=== PATIENT | female | born 1965 | race African-American/Black ===

== ENCOUNTER 2018-02-13 02:27 | Observation (INO) | END 2018-02-15 17:09 | disposition home health service (06) ==

== ENCOUNTER 2018-03-04 18:14 | Inpatient (IN) | END 2018-03-07 15:58 | disposition home health service (06) | DRG 246 ==

== ENCOUNTER 2018-04-10 13:54 | Emergency (ER) | END 2018-04-10 20:38 | disposition short-term general hospital (02) ==

== ENCOUNTER 2018-06-29 09:30 | Emergency (ER) | END 2018-06-29 13:35 | disposition home or self-care (01) ==

== ENCOUNTER 2018-07-10 07:49 | Emergency (ER) | payer OTHER ==
[~2018-07-10] VITALS: Ht 162.6 cm; Wt 81.0 kg
[~2018-07-10 07:49] MED LIST: ARIP10TA12 PO; ASPI-817 PO; ATOR-2 PO; BEN50 PO; CARI350T29 PO; CLOP75TA28 PO; DOCU-144 PO; GABA300C16 PO; HYDR-3980 PO; ISOS30TA67 PO; LANT3I SC; LINA5TAB PO; LOSA50TA7 PO; METF500T24 PO; METO-335 PO; NITR0.4T39 SL; NORT50CA PO; PANT20TA2 PO; PARO30TA68 PO; RANO500T2 PO; SS SC; TEMA30CA PO
[2018-07-10] MEDS ORDERED: morphine 4 MG/ML VIAL IV STA (07:52)
[2018-07-10] MEDS ORDERED: ONDANSETRON 4 MG INJ IV STA (07:52)
[2018-07-10] MEDS ORDERED: SOD CHLORIDE 0.9% 1,000 ML IV STA (07:52)
[2018-07-10 08:09] VITALS: Ht 162.6 cm; Wt 81.0 kg
[2018-07-10] MEDS ORDERED: INSULIN LISPRO 100 UNIT/ML VIAL SC ONE (10:30)
[2018-07-10 11:30] VITALS: BP 116/78; PULSE 78; RESP 18
--- NOTE | 2018-07-10 13:26 | ERD ---
ER Documentation Chief Complaint Chief Complaint pt bib RA 40 with c/o nausea and headache since 2 am, hx DM HPI Patient is a 53-year-old female with high cholesterol, diabetes, and hypertension who presents with headache and high blood sugar. She said that it 2 AM she started with nausea. Her blood sugar was 466 by paramedics. She said that she took her insulin last night. She complains of a headache as well and has a history of aneurysm. Upon review of old medical records this is the patient's fifth visit to the ER since February 2018. She has had similar visits in the past. She does have a primary doctor. ROS All systems reviewed and are negative except as per history of present illness. Medications Home Meds Active Scripts Hydrocodone/Acetaminophen ([place] 10-325 Tablet) 1 Each Tablet, 1 TAB PO Q6H PRN for PAIN, #7 TAB Prov:JENNIFER ATWOOD DO 06/29/18 Losartan Potassium* (Losartan Potassium*) 50 Mg Tablet, 50 MG PO DAILY, #30 TAB 1 Refill Prov:TANK HILL 03/06/18 Atorvastatin* (Atorvastatin*) 80 Mg Tablet, 80 MG PO QHS for 30 Days, #30 TAB 2 Refills Prov:TANK HILL 03/06/18 Clopidogrel Bisulfate (Clopidogrel) 75 Mg Tablet, 75 MG PO DAILY for 30 Days, #30 TAB 9 Refills Prov:TANK HILL 03/06/18 Aspirin* (Aspirin* EC) 81 Mg Tablet.dr, 81 MG PO DAILY for 30 Days, #30 TAB 9 Refills Prov:TANK HILL 03/06/18 Reported Medications Temazepam* (Temazepam*) 30 Mg Capsule, 30 MG PO HS PRN for INSOMNIA, CAP 03/04/18 Nortriptyline Hcl* (Nortriptyline Hcl*) 50 Mg Capsule, 50 MG PO QHS, TAB 03/04/18 Insulin Human Regular (Novolin-R U-100) 100 Unit/Ml Soln, 30 UNITS SC AC MEALS AND BEDTIME, EA 03/04/18 Hydrocodone/Acetaminophen ([place] 10-325 Tablet) 1 Each Tablet, 1 EACH PO QID PRN for PAIN, TAB 03/04/18 Diphenhydramine Hcl* (Benadryl*) 50 Mg Cap, 50 MG PO Q6 PRN for ITCHING, CAP 03/04/18 Linagliptin (TRADJENTA) 5 Mg Tablet, 5 MG PO DAILY, TAB 03/04/18 Pantoprazole* (Protonix*) 20 Mg Tablet.dr, 20 MG PO BID, TAB 03/04/18 Metformin Hcl* (Metformin Hcl*) 500 Mg Tablet, 500 MG PO WITH BREAKFAST DINNE, #60 TAB 03/04/18 Insulin Glargine* (Lantus*) 100 Unit/Ml Soln, 80 UNIT SC BID, #1 VIAL 03/04/18 Isosorbide Mononitrate* (Isosorbide Mononitrate*) 30 Mg Tab.er.24h, 30 MG PO DAILY, TAB 02/12/18 Carisoprodol* (Carisoprodol*) 350 Mg Tablet, 350 MG PO DAILY PRN for MUSCLE SPASMS, TAB 02/12/18 Metoprolol Succinate* (Toprol XL*) 25 Mg Tab.sr.24h, 25 MG PO DAILY, #30 TAB 02/12/18 Paroxetine Hcl* (Paroxetine*) 30 Mg Tablet, 30 MG PO HS, TAB 02/12/18 Gabapentin* (Gabapentin*) 300 Mg Capsule, 300 MG PO QHS, #60 CAP 02/12/18 Ranolazine* (Ranexa*) 500 Mg Tab.sr.12h, 500 MG PO Q12, TAB 02/12/18 Nitroglycerin* (Nitrostat*) 0.4 Mg Tab.subl, 0.4 MG SL Q5MIN PRN for CHEST PAIN, BOTTLE 02/12/18 Aripiprazole* (Abilify*) 10 Mg Tablet, 10 MG PO QHS, #30 TAB 02/12/18 Docusate Sodium* (Colace*) 100 Mg Capsule, 100 MG PO Q24H PRN for CONSTIPATION, #30 CAP 02/12/18 Allergies Allergies: Coded Allergies: ampicillin (Verified Allergy, Unknown, 04/10/18) sulbactam (Verified Allergy, Unknown, 04/10/18) PMhx/Soc History of Surgery: Yes (C-sections, 2 cardiac stents 02/24 ) Anesthesia Reaction: No Hx Neurological Disorder: No Hx Respiratory Disorders: No Hx Cardiac Disorders: Yes Hx Psychiatric Problems: No Hx Miscellaneous Medical Probl: Yes (CAD s/p stent placed 2 weeks ago, DM, diabetic neuropathy, HTN) Hx Alcohol Use: No Hx Substance Use: No Hx Tobacco Use: No Smoking Status: Unknown if ever smoked FmHx Family History: diabetes Physical Exam Vitals Vital Signs Date Temp Pulse Resp B/P (MAP) Pulse Ox O2 O2 Flow FiO2 Time Delivery Rate 07/10/18 98.4 78 18 116/78 100 11:30 (91) 07/10/18 97.3 76 18 125/83 97 08:09 (97) Physical Exam Const: Moderate distress Head: Atraumatic Eyes: Normal Conjunctiva ENT: Normal External Ears, Nose and Mouth. Neck: Full range of motion. No meningismus. Resp: Clear to auscultation bilaterally Cardio: Regular rate and rhythm, no murmurs Abd: Soft, non tender, non distended. Normal bowel sounds Skin: No petechiae or rashes Back: No midline or flank tenderness Ext: No cyanosis, or edema Neur: Awake and alert, cranial nerves II through XII intact, strength is 5 out of 5 in all 4 extremities Psych: Normal Mood and Affect Result Diagram: 07/10/18 0804 07/10/18 0900 Results 24 hrs Laboratory Tests Test 07/10/18 07:52 07/10/18 08:03 07/10/18 08:04 07/10/18 09:00 Blood Gas Blood venous Specimen Source Arterial Blood 07/10/2018 9:22:38 Date Drawn AM Arterial Blood VENOUS LINE Gas Puncture Site Toni Test N/A Venous Blood pH 7.330 Venous Blood pCO2 48.9 mmHG (Temp Corrected) Venous Blood pO2 24.6 mmHG (Temp Corrected) Venous Blood HCO3 25.2 mmol/L Venous Blood 42.3 mmHG Oxygen Saturation Venous Blood Base -1.2 mmol/L Excess Venous Blood 14.0 g/dl Total Hemoglobin Venous Blood 41.9 % Oxyhemoglobin Venous Blood 0.2 % Methemoglobin Carboxyhemoglobin 0.7 % Blood Gas 37.0 C Temperature Blood Gas Actual 20 Respiration Rate Blood Gas ROOM AIR Modality FiO2 21.0 % Blood Gas JUAN RT Notified Whom Blood Gas 07/10/2018 9:28:36 Notified Time AM Bedside Glucose 495 mg/dL White Blood Count 7.5 10^3/ul Red Blood Count 4.32 10^6/ul Hemoglobin 13.3 g/dl Hematocrit 37.8 % Mean Corpuscular 87.5 fl Volume Mean Corpuscular 30.8 pg Hemoglobin Mean Corpuscular 35.2 g/dl Hemoglobin Concen t Red Cell 12.5 % Distribution Width Platelet Count 375 10^3/UL Mean Platelet 10.1 fl Volume Immature 0.300 % Granulocytes % Neutrophils % 65.2 % Lymphocytes % 24.2 % Monocytes % 7.2 % Eosinophils % 2.7 % Basophils % 0.4 % Nucleated Red 0.0 /100WBC Blood Cells % Immature 0.020 10^3/ul Granulocytes # Neutrophils # 4.9 10^3/ul Lymphocytes # 1.8 10^3/ul Monocytes # 0.5 10^3/ul Eosinophils # 0.2 10^3/ul Basophils # 0.0 10^3/ul Nucleated Red 0.0 10^3/ul Blood Cells # Sodium Level 133 mmol/L Potassium Level 4.5 mmol/L Chloride Level 104 mmol/L Carbon Dioxide 25 mmol/L Level Anion Gap 4 Blood Urea 8 mg/dl Nitrogen Creatinine 0.68 mg/dl Est Glomerular > 60 mL/min Filtrat Rate mL/min Glucose Level 456 mg/dl Calcium Level 8.5 mg/dl Phosphorus Level 3.3 mg/dl Magnesium Level 1.8 mg/dl Test 07/10/18 11:25 Bedside Glucose 463 mg/dL Current Medications Medications Dose Sig/Victoria Start Time Status Last (Trade) Ordered Route PRN Stop Time Admin Dose Reason Admin Morphine 4 mg ONCE STAT 07/10/18 DC 07/10/18 Sulfate IV 07:52 07/10/18 08:32 (morphine) 07:56 Ondansetron 4 mg ONCE STAT 07/10/18 DC 07/10/18 HCl (Zofran IV 07:52 07/10/18 08:33 Inj) 07:56 Sodium 1,000 ml @ Q1H STAT 07/10/18 DC 07/10/18 Chloride 1,000 mls/hr IV 07:52 07/10/18 08:33 08:51 Insulin 10 unit ONCE ONCE 07/10/18 DC 07/10/18 Human SC 10:30 07/10/18 10:49 Lispro 10:32 (Humalog) Procedures/MDM CT brain read by radiology as normal. Patient is a 53-year-old female who presents with hyperglycemia and headache. CT scan of the brain shows no sign of intracranial hemorrhage or mass. The patient has hyperglycemia but no signs of diabetic ketoacidosis. She was treate d with normal saline 1 L bolus as well as Zofran and Humalog 10 units subcutaneous. The patient will be discharged home. I do not believe she requires further workup or admission in the hospital at this time. She should follow-up with her primary doctor within 24-48 hours. Departure Diagnosis: Primary Impression: Headache Headache type: unspecified Headache chronicity pattern: acute headache Intractability: not intractable Qualified Codes: R51 - Headache Additional Impression: Hyperglycemia Condition: Fair Patient Instructions: Hyperglycemia (High Blood Sugar), Self-Care for Headaches Referrals: Dr. Park Additional Instructions: Call your primary care doctor TOMORROW for an appointment during the next 1-2 days.See the doctor sooner or return here if your condition worsens before your appointment time. ANUPAMA PISANO MD Jul 10, 2018 13:26
== END 2018-07-10 11:32 | disposition home or self-care (01) ==
LOC: E/R 07:49
DX: R51 Headache (principal); E11.65 Type 2 diabetes mellitus with hyperglycemia; I10 Essential (primary) hypertension; I25.10 Atherosclerotic heart disease of native coronary artery without angina pectoris; Z79.01 Long term (current) use of anticoagulants; Z79.4 Long term (current) use of insulin; Z79.82 Long term (current) use of aspirin; Z98.61 Coronary angioplasty status
CPT/HCPCS: 36415; 70450; 80048; 82803; 82962; 83735; 84100; 85025; 96372; 96374; 96375; J1815; J2270; J2405; J7030; Z7502

== ENCOUNTER 2018-11-27 17:11 | Observation (INO) | payer OTHER ==
[~2018-11-27] VITALS: Ht 165.1 cm; Wt 84.0 kg
[~2018-11-27 17:11] MED LIST changes: +LOSA50TA14 PO; -LOSA50TA7 PO
[2018-11-27] MEDS ORDERED: SOD CHLORIDE 0.9% 1,000 ML IV STA ×2 (17:25→18:47)
[2018-11-27] MEDS ORDERED: CARI350T29 PO (17:37)
[2018-11-27] MEDS ORDERED: HYDR-3980 PO (17:38)
[2018-11-27] MEDS ORDERED: DIPH50CA30 PO (17:38)
--- NOTE | 2018-11-27 17:38 | ERD ---
ER Documentation Chief Complaint Chief Complaint HYPERGLYCEMIA, TOO HIGH TO READ ON MONITOR & DIZZINESS, LEFT TOE NAIL OFF HPI 53-year-old female with a history of insulin-dependent diabetes presenting with hyperglycemia. She has checked her sugar multiple times a day and it has been too high to read. She has been using all of her medications appropriately and has changed her diet. She injected herself with insulin 3 times today without improvement. She is feeling dizzy, generally weak. She also states that she stubbed her left toe and her nail partially came off but she pushed it down. She is complaining of throbbing pain in her left big toe, worse with ambulation, with no alleviating factors. ROS All systems reviewed and are negative except as per history of present illness. Medications Home Meds Active Scripts Mupirocin* (Bactroban*) 2% -22 Gram Oint...g., 1 APPLIC TOP DAILY, #1 TUB Prov:DELORES KIRKLAND 11/29/18 Reported Medications Salmeterol Xinaf-Fluticasone* (Advair*) 100/50 Diskus Inhaler, 1 INH INHALATION BID, #1 INHALER 11/27/18 Atorvastatin* (Atorvastatin*) 80 Mg Tablet, 80 MG PO QHS, #30 TAB 11/27/18 Losartan Potassium* (Losartan Potassium*) 50 Mg Tablet, 50 MG PO DAILY, TAB 11/27/18 Docusate Sodium* (Colace*) 100 Mg Capsule, 100 MG PO DAILY, #30 CAP 11/27/18 Gabapentin* (Gabapentin*) 300 Mg Capsule, 300 MG PO TID, #90 CAP 11/27/18 Metoprolol Succinate* (Toprol XL*) 25 Mg Tab.sr.24h, 25 MG PO DAILY, #30 TAB 11/27/18 Insulin Regular, Human (Humulin R U-500 Kwikpen) 500 Unit/1 Ml Insuln.pen, 25 UNIT SQ TID 11/27/18 Insulin Glargine* (Lantus*) 100 Unit/Ml Soln, 80 UNIT SC BID, #1 VIAL 11/27/18 Paroxetine Hcl* (Paroxetine*) 30 Mg Tablet, 30 MG PO HS, TAB 11/27/18 Clopidogrel Bisulfate* (Clopidogrel Bisulfate*) 75 Mg Tablet, 75 MG PO DAILY, #30 TAB 11/27/18 Isosorbide Mononitrate* (Isosorbide Mononitrate*) 30 Mg Tab.er.24h, 30 MG PO DAILY, TAB 11/27/18 Loratadine* (Loratadine*) 10 Mg Tablet, 10 MG PO DAILY, #30 TAB 11/27/18 Amlodipine Besylate* (Amlodipine Besylate*) 10 Mg Tablet, 10 MG PO DAILY, #30 TAB 11/27/18 Aspirin* (Aspirin* EC) 81 Mg Tablet.dr, 81 MG PO DAILY, TAB 11/27/18 Temazepam* (Temazepam*) 30 Mg Capsule, 30 MG PO HS PRN for INSOMNIA, CAP 11/27/18 Nitroglycerin* (Nitroglycerin* SL) 0.4 Mg Tab.subl, 0.4 MG SL Q5MIN PRN for CHEST PAIN, BOTTLE 11/27/18 Diphenhydramine Hcl (BANOPHEN) 50 Mg Capsule, 50 MG PO NEEDED, CAP 11/27/18 Hydrocodone/Acetaminophen ([place] 10-325 Tablet) 1 Each Tablet, 1 EACH PO Q6H, TAB 11/27/18 Carisoprodol* (Carisoprodol*) 350 Mg Tablet, 350 MG PO DAILY PRN for MUSCLE SPASMS, TAB 11/27/18 Discontinued Reported Medications Temazepam* (Temazepam*) 30 Mg Capsule, 30 MG PO HS PRN for INSOMNIA, CAP 03/04/18 Nortriptyline Hcl* (Nortriptyline Hcl*) 50 Mg Capsule, 50 MG PO QHS, TAB 03/04/18 Insulin Human Regular (Novolin-R U-100) 100 Unit/Ml Soln, 30 UNITS SC AC MEALS AND BEDTIME, EA 03/04/18 Hydrocodone/Acetaminophen ([place] 10-325 Tablet) 1 Each Tablet, 1 EACH PO QID PRN for PAIN, TAB 03/04/18 Diphenhydramine Hcl* (Benadryl*) 50 Mg Cap, 50 MG PO Q6 PRN for ITCHING, CAP 03/04/18 Linagliptin (TRADJENTA) 5 Mg Tablet, 5 MG PO DAILY, TAB 03/04/18 Pantoprazole* (Protonix*) 20 Mg Tablet.dr, 20 MG PO BID, TAB 03/04/18 Metformin Hcl* (Metformin Hcl*) 500 Mg Tablet, 500 MG PO WITH BREAKFAST DINNE, #60 TAB 03/04/18 Insulin Glargine* (Lantus*) 100 Unit/Ml Soln, 80 UNIT SC BID, #1 VIAL 03/04/18 Isosorbide Mononitrate* (Isosorbide Mononitrate*) 30 Mg Tab.er.24h, 30 MG PO DAILY, TAB 02/12/18 Carisoprodol* (Carisoprodol*) 350 Mg Tablet, 350 MG PO DAILY PRN for MUSCLE SPASMS, TAB 02/12/18 Metoprolol Succinate* (Toprol XL*) 25 Mg Tab.sr.24h, 25 MG PO DAILY, #30 TAB 02/12/18 Paroxetine Hcl* (Paroxetine*) 30 Mg Tablet, 30 MG PO HS, TAB 02/12/18 Gabapentin* (Gabapentin*) 300 Mg Capsule, 300 MG PO QHS, #60 CAP 02/12/18 Ranolazine* (Ranexa*) 500 Mg Tab.sr.12h, 500 MG PO Q12, TAB 02/12/18 Nitroglycerin* (Nitrostat*) 0.4 Mg Tab.subl, 0.4 MG SL Q5MIN PRN for CHEST PAIN, BOTTLE 02/12/18 Aripiprazole* (Abilify*) 10 Mg Tablet, 10 MG PO QHS, #30 TAB 02/12/18 Docusate Sodium* (Colace*) 100 Mg Capsule, 100 MG PO Q24H PRN for CONSTIPATION, #30 CAP 02/12/18 Discontinued Scripts Hydrocodone/Acetaminophen ([place] 10-325 Tablet) 1 Each Tablet, 1 TAB PO Q6H PRN for PAIN, #7 TAB Prov:JENNIFER ATWOOD DO 06/29/18 Losartan Potassium* (Losartan Potassium*) 50 Mg Tablet, 50 MG PO DAILY, #30 TAB 1 Refill Prov:TANK HILL 03/06/18 Atorvastatin* (Atorvastatin*) 80 Mg Tablet, 80 MG PO QHS for 30 Days, #30 TAB 2 Refills Prov:TANK HILL 03/06/18 Clopidogrel Bisulfate (Clopidogrel) 75 Mg Tablet, 75 MG PO DAILY for 30 Days, #30 TAB 9 Refills Prov:TANK HILL 03/06/18 Aspirin* (Aspirin* EC) 81 Mg Tablet.dr, 81 MG PO DAILY for 30 Days, #30 TAB 9 Refills Prov:TANK HILL 03/06/18 Allergies Allergies: Coded Allergies: ampicillin (Verified Allergy, Unknown, 11/27/18) sulbactam (Verified Allergy, Unknown, 11/27/18) PMhx/Soc History of Surgery: Yes (C-sections, 2 cardiac stents 02/24 ) Anesthesia Reaction: No Hx Neurological Disorder: No Hx Respiratory Disorders: No Hx Cardiac Disorders: Yes Hx Psychiatric Problems: No Hx Miscellaneous Medical Probl: Yes (CAD s/p stent placed 2 weeks ago, DM, diab etic neuropathy, HTN) Hx Alcohol Use: No Hx Substance Use: No Hx Tobacco Use: No Smoking Status: Never smoker FmHx Family History: diabetes Physical Exam Vitals Vital Signs Date Temp Pulse Resp B/P (MAP) Pulse Ox O2 O2 Flow FiO2 Time Delivery Rate 11/27/18 79 12 158/76 96 Room Air 18:19 (103) 11/27/18 82 15 152/93 98 Room Air 17:28 (112) 11/27/18 98.7 87 18 152/99 97 17:19 (116) Physical Exam Const: No acute distress Head: Atraumatic Eyes: Normal Conjunctiva ENT: Dry mucous membranes. Normal External Ears, Nose and Mouth. Neck: Full range of motion. No meningismus. Resp: Clear to auscultation bilaterally Cardio: Regular rate and rhythm, no murmurs Abd: Soft, non tender, non distended. Normal bowel sounds Skin: No petechiae or rashes Back: No midline or flank tenderness Ext: No cyanosis, or edema. Left big toe with nail loose but in place .No bruising or bleeding. No evidence of nailbed laceration. Matrix intact. Neur: Awake and alert Psych: Normal Mood and Affect Result Diagram: 11/28/18 0455 11/29/18 0434 Results 24 hrs Laboratory Tests Test 11/27/18 17:34 11/27/18 19:12 11/27/18 20:17 11/27/18 20:21 White Blood Count 8.7 10^3/ul Red Blood Count 4.99 10^6/ul Hemoglobin 14.8 g/dl Hematocrit 42.5 % Mean Corpuscular 85.2 fl Volume Mean Corpuscular 29.7 pg Hemoglobin Mean Corpuscular 34.8 g/dl Hemoglobin Concen t Red Cell 11.8 % Distribution Width Platelet Count 342 10^3/UL Mean Platelet 10.0 fl Volume Immature 0.200 % Granulocytes % Neutrophils % 63.4 % Lymphocytes % 28.3 % Monocytes % 5.4 % Eosinophils % 2.2 % Basophils % 0.5 % Nucleated Red 0.0 /100WBC Blood Cells % Immature 0.020 10^3/ul Granulocytes # Neutrophils # 5.5 10^3/ul Lymphocytes # 2.5 10^3/ul Monocytes # 0.5 10^3/ul Eosinophils # 0.2 10^3/ul Basophils # 0.0 10^3/ul Nucleated Red 0.0 10^3/ul Blood Cells # Sodium Level 132 mmol/L Potassium Level 4.4 mmol/L Chloride Level 97 mmol/L Carbon Dioxide 24 mmol/L Level Anion Gap 11 Blood Urea 10 mg/dl Nitrogen Creatinine 0.89 mg/dl Est Glomerular > 60 mL/min Filtrat Rate mL/min Glucose Level 573 mg/dl Bedside Glucose 538 mg/dL 409 mg/dL 343 mg/dL Calcium Level 9.8 mg/dl Urine Color STRAW Urine Clarity CLEAR Urine pH 8.0 Urine Specific 1.027 [place] Urine Ketones TRACE mg/dL Urine Nitrite NEGATIVE mg/dL Urine Bilirubin NEGATIVE mg/dL Urine NEGATIVE mg/dL Urobilinogen Urine Leukocyte NEGATIVE Gene/ul Esterase Urine Microscopic 4 /HPF RBC Urine Microscopic 0 /HPF WBC Urine Hemoglobin NEGATIVE mg/dL Urine Glucose 3+ mg/dL Urine Total 1+ mg/dl Protein Current Medications Medications Dose Sig/Victoria Start Time Status Last (Trade) Ordered Route PRN Stop Time Admin Dose Reason Admin Sodium 1,000 ml @ Q1H STAT 11/27/18 DC 11/27/18 Chloride 1,000 mls/hr IV 17:25 17:35 11/27/18 18:24 Sodium 1,000 ml @ Q1H STAT 11/27/18 DC 11/27/18 Chloride 1,000 mls/hr IV 18:47 19:05 11/27/18 19:46 Insulin 10 unit ONCE STAT 11/27/18 DC 11/27/18 Human SC 18:47 19:15 Lispro 11/27/18 18:48 (Humalog) Procedures/MDM EMERGENT LABS AND DIAGNOSTIC STUDIES: Lab Results above were reviewed and interpreted by me. CBC: no anemia or evidence of infection BMP: Hyperglycemic without evidence of diabetic ketoacidosis. no e/o clinically significant electrolyte abnormality severe acidosis, alkalosis, renal failure UA: Pending Initial Nursing notes reviewed. Previous Medical Records requested via the Electronic Health Record. EMERGENCY DEPARTMENT COURSE / MEDICAL DECISION MAKING: Patient is presenting with hyperglycemia without evidence of DKA and without a ny neurologic deficits. She was treated with 2 L of IV fluids as well as insulin subcutaneously. No evidence of acute infection. Her blood sugar remains in the 400s. At this time, I feel the patient requires admission for observation and control of her blood sugar prior to discharge. Departure Diagnosis: Primary Impression: Hyperglycemia BRISEIDA PHILLIPS MD November 27, 2018 17:38
[2018-11-27] MEDS ORDERED: ASPI-817 PO (17:39)
[2018-11-27] MEDS ORDERED: NITR0.4T32 SL (17:39)
[2018-11-27] MEDS ORDERED: TEMA30CA PO (17:39)
[2018-11-27] MEDS ORDERED: LORA10TA3 PO (17:40)
[2018-11-27] MEDS ORDERED: ISOS30TA67 PO (17:40)
[2018-11-27] MEDS ORDERED: AMLO-147 PO (17:40)
[2018-11-27] MEDS ORDERED: PARO30TA68 PO (17:41)
[2018-11-27] MEDS ORDERED: LANT3I SC (17:41)
[2018-11-27] MEDS ORDERED: CLOP75TA19 PO (17:41)
[2018-11-27] MEDS ORDERED: INSU500I SQ (17:42)
[2018-11-27] MEDS ORDERED: METO-335 PO (17:42)
[2018-11-27] MEDS ORDERED: GABA300C16 PO (17:43)
[2018-11-27] MEDS ORDERED: DOCU-144 PO (17:43)
[2018-11-27] MEDS ORDERED: LOSA50TA14 PO (17:43)
[2018-11-27] MEDS ORDERED: ATOR-2 PO (17:44)
[2018-11-27] MEDS ORDERED: ADV10050 INHALATION (17:45)
[2018-11-27] MEDS ORDERED: INSULIN LISPRO 100 UNIT/ML VIAL SC STA (18:47)
[2018-11-27] MEDS ORDERED: ACETAMINOPHEN 325 MG TAB PO PRN (20:30)
[2018-11-27] MEDS ORDERED: ONDANSETRON 4 MG INJ IV PRN (20:30)
--- NOTE | 2018-11-27 23:59 | HP ---
Date/Time of Note Date/Time of Note DATE: 11/27/18 TIME: 23:59 Assessment/Plan VTE Prophylaxis Pharmacological prophylaxis: other Lines/Catheters IV Catheter Type (from Nrsg): Saline Lock Assessment/Plan Assessment/Plan 1. Diabetes, insulin-dependent: With hyperglycemia, no DKA -Patient on very high-dose Lantus and short-acting insulin -She reports being compliant with her medications -She was given 10 units of lispro and IV fluid with improvement of her blood glucose from around 570 to 270 -Continue insulin and IV fluid -Check A1c -Endocrine consult 2. History of hypertension: Continue med 3. History of MD, no history of stent: Continue home meds including antiplatelet and antilipid 4. Hypertension: BP was in acceptable range. Continue meds, adjust as needed 5. History of stroke, possible history of brain aneurysm -Continue statin and antiplatelet 6. Mood disorder: Continue paroxetine Result Diagram: 11/27/18 1734 11/27/18 1734 Results 24hrs Laboratory Tests Test 11/27/18 17:34 11/27/18 19:12 11/27/18 20:17 11/27/18 20:21 White Blood Count 8.7 Red Blood Count 4.99 Hemoglobin 14.8 Hematocrit 42.5 Mean Corpuscular 85.2 Volume Mean Corpuscular 29.7 Hemoglobin Mean Corpuscular 34.8 Hemoglobin Concent Red Cell 11.8 Distribution Width Platelet Count 342 Mean Platelet Volume 10.0 Immature 0.200 Granulocytes % Neutrophils % 63.4 Lymphocytes % 28.3 Monocytes % 5.4 Eosinophils % 2.2 Basophils % 0.5 Nucleated Red Blood 0.0 Cells % Immature 0.020 Granulocytes # Neutrophils # 5.5 Lymphocytes # 2.5 Monocytes # 0.5 Eosinophils # 0.2 Basophils # 0.0 Nucleated Red Blood 0.0 Cells # Sodium Level 132 L Potassium Level 4.4 Chloride Level 97 Carbon Dioxide Level 24 Anion Gap 11 Blood Urea Nitrogen 10 Creatinine 0.89 Est Glomerular > 60 Filtrat Rate mL/min Glucose Level 573 *H Bedside Glucose 538 *H 409 *H 343 H Calcium Level 9.8 Urine Color STRAW Urine Clarity CLEAR Urine pH 8.0 Urine Specific 1.027 [place] Urine Ketones TRACE A Urine Nitrite NEGATIVE Urine Bilirubin NEGATIVE Urine Urobilinogen NEGATIVE Urine Leukocyte NEGATIVE Esterase Urine Microscopic 4 RBC Urine Microscopic 0 WBC Urine Hemoglobin NEGATIVE Urine Glucose 3+ H Urine Total Protein 1+ H HPI/ROS Admit Date/Time Admit Date/Time Hx of Present Illness This is a 53-year-old female with a history of MD, CVA with possible brain aneurysm, diabetes mellitus, diabetic neuropathy, mood disorder, hypertension who presents the ER complaining of elevated blood glucose. She said her blood glucose has been persistently high even though she states she has been compliant with her medications. She complains of dizziness, nausea/vomiting and generalized weakness. When she presented to ER, she was found to have blood glucose of around 570, no DKA. Patient was given 10 units of lispro and IV fluid. PMH/Family/Social Past Medical History Past Medical History Medical History: other (See HPI) Past Surgical History Past Surgical Hx: other (See HPI) Family History Significant Family History: no pertinent family hx Social History Alcohol Use: none Smoking Status: Never smoker Drug Use: none Exam Constitutional: alert, oriented, well developed Head: normocephalic, atraumatic Eyes: EOMI, PERRL Respiratory: clear to auscultation, normal air movement Cardiovascular: regular rate and rhythm, nl pulses Gastrointestinal: soft, non-tender Extremities: normal pulses Medications Current Medications Ondansetron HCl (Zofran Inj) 4 mg BRIDGE ORDER PRN IV NAUSEA/VOMITING; Start 11/27/18 at 20:30; Stop 11/28/18 at 20:29 Acetaminophen (Tylenol Tab) 650 mg ER BRIDGE PRN PO .MILD PAIN 1-3 OR TEMP; Start 11/27/18 at 20:30; Stop 11/28/18 at 20:29 Coded Allergies: ampicillin (Verified Allergy, Unknown, 11/27/18) sulbactam (Verified Allergy, Unknown, 11/27/18) Past Surgical History Past Surgical Hx: other Family History Significant Family History: no pertinent family hx Social History Smoking Status: Never smoker Exam/Review of Systems Vital Signs Vitals Vital Signs Date Temp Pulse Resp B/P (MAP) Pulse Ox O2 O2 Flow FiO2 Time Delivery Rate 11/27/18 98.4 76 16 139/103 98 Room Air 23:24 (115) FRANKIE WYNN MD November 27, 2018 23:59
[2018-11-28] MEDS ORDERED: ONDANSETRON 4 MG INJ IV PRN (00:30)
[2018-11-28] MEDS ORDERED: ALBUTEROL/IPRATROPIUM (NEB) 3 ML AMP HHN PRN (00:30)
[2018-11-28] MEDS ORDERED: GLUCOSE GEL 15 GRAM TUBE PO PRN ×2 (00:30)
[2018-11-28] MEDS ORDERED: GLUCAGON 1 MG INJ IM PRN (00:30)
[2018-11-28] MEDS ORDERED: DEXTROSE 50% 50 ML SYRINGE IV PRN ×2 (00:30)
[2018-11-28] MEDS ORDERED: GLUCOSE GEL 15 GRAM TUBE BUCCAL PRN (00:30)
[2018-11-28] MEDS ORDERED: NITROGLYCERIN (SL) 0.4 MG TAB SL PRN (00:30)
[2018-11-28] MEDS ORDERED: NACL 0.9% 3 ML SYG IV SCH (00:30)
[2018-11-28] MEDS ORDERED: ACETAMINOPHEN 325 MG TAB PO PRN (00:30)
[2018-11-28] MEDS ORDERED: CARISOPRODOL 350 MG TAB PO PRN (00:30)
[2018-11-28] MEDS ORDERED: ACCU-CHEK XX SCH (02:00)
[2018-11-28] MEDS: HYDROCODONE/APAP (10/325) TAB PO PRN ×3 (02:23→17:08)
[2018-11-28] MEDS: SOD CHLORIDE 0.9% 1,000 ML IV SCH ×3 (02:24→17:03)
[2018-11-28 02:35] VITALS: BP 163/93; PULSE 82; RESP 18
[2018-11-28 02:49] VITALS: Ht 165.1 cm; Wt 84.0 kg
[2018-11-28] MEDS: INSULIN GLARGINE [LANTus] (100 UNITS/ML) SYG SC SCH ×2 (03:48→20:49)
[2018-11-28] MEDS: INSULIN ASPART [NOVOLOG] 3 ML PEN SC SCH ×7 (03:51→20:57)
[2018-11-28] MEDS ORDERED: INSULIN ASPART [NOVOLOG] 3 ML PEN SC ONE (06:00)
[2018-11-28] MEDS ORDERED: ACCU-CHEK XX ONE (08:00)
[2018-11-28 08:08] VITALS: BP 139/68; PULSE 87; RESP 18
[2018-11-28] MEDS: LORATADINE 10 MG TAB PO SCH (08:42)
[2018-11-28] MEDS: CLOPIDOGREL 75 MG TAB PO SCH (08:43)
[2018-11-28] MEDS: LOSARTAN 50 MG TAB PO SCH (08:43)
[2018-11-28] MEDS: GABAPENTIN 300 MG CAP PO SCH ×3 (08:43→20:46)
[2018-11-28] MEDS: ASPIRIN (EC) 81 MG TAB PO SCH (08:44)
[2018-11-28] MEDS: METOPROLOL (XL) 25 MG TAB PO SCH (08:44)
[2018-11-28] MEDS: ISOSORBIDE MONONITRATE(SR)30 MG TAB PO SCH (08:45)
[2018-11-28] MEDS: DOCUSATE SODIUM 100 MG CAP PO SCH (08:52)
[2018-11-28] MEDS: AMLODIPINE 10 MG TAB PO SCH (08:52)
[2018-11-28] MEDS ORDERED: POTASSIUM CHLORIDE (SR) 20 MEQ TAB PO STA (09:51)
[2018-11-28] MEDS ORDERED: DIPHENHYDRAMINE 50 MG CAP PO ONE (11:30)
[2018-11-28] MEDS ORDERED: DIPHENHYDRAMINE 50 MG INJ IV ONE (12:30)
[2018-11-28] MEDS ORDERED: LIDOCAINE 1% (MDV) 20 ML INJ INJ PRN (13:30)
--- NOTE | 2018-11-28 14:48 | PN ---
Date/Time of Note Date/Time of Note DATE: 11/28/18 TIME: 14:45 Assessment/Plan VTE Prophylaxis Risk score (from Ns)>0 risk: 3 SCD applied (from Ns): Yes Pharmacological prophylaxis: NA/contraindicated Pharm contraindication: low risk/ambulating Lines/Catheters IV Catheter Type ([facility] Peripheral IV Assessment/Plan Hospital Course 1. Diabetes, insulin-dependent: With hyperglycemia, no DKA -Patient on very high-dose Lantus and short-acting insulin -She reports being compliant with her medications -She was given 10 units of lispro and IV fluid with improvement of her blood g lucose -Continue insulin and IV fluid -A1c is undetectable -Patient follows up with public health advisor as an outpatient 2. Diabetic toenail separation -Podiatry consultation obtained 2. History of hypertension: Continue med 3. History of AL, no history of stent: Continue home meds including anti platelet and antilipid 4. Hypertension: BP was in acceptable range. Continue meds, adjust as needed 5. History of stroke, possible history of brain aneurysm -Continue statin and antiplatelet 6. Mood disorder: Continue paroxetine 7. Pruritus -Benadryl Prophylaxis: Ambulation Result Diagram: 11/28/18 0455 11/28/18 0456 Results 24hrs Laboratory Tests Test 11/27/18 17:34 11/27/18 19:12 11/27/18 20:17 11/27/18 20:21 White Blood Count 8.7 Red Blood Count 4.99 Hemoglobin 14.8 Hematocrit 42.5 Mean Corpuscular 85.2 Volume Mean Corpuscular 29.7 Hemoglobin Mean Corpuscular 34.8 Hemoglobin Concent Red Cell 11.8 Distribution Width Platelet Count 342 Mean Platelet Volume 10.0 Immature 0.200 Granulocytes % Neutrophils % 63.4 Lymphocytes % 28.3 Monocytes % 5.4 Eosinophils % 2.2 Basophils % 0.5 Nucleated Red Blood 0.0 Cells % Immature 0.020 Granulocytes # Neutrophils # 5.5 Lymphocytes # 2.5 Monocytes # 0.5 Eosinophils # 0.2 Basophils # 0.0 Nucleated Red Blood 0.0 Cells # Sodium Level 132 L Potassium Level 4.4 Chloride Level 97 Carbon Dioxide Level 24 Anion Gap 11 Blood Urea Nitrogen 10 Creatinine 0.89 Est Glomerular > 60 Filtrat Rate mL/min Glucose Level 573 *H Bedside Glucose 538 *H 409 *H 343 H Calcium Level 9.8 Urine Color STRAW Urine Clarity CLEAR Urine pH 8.0 Urine Specific 1.027 [place] Urine Ketones TRACE A Urine Nitrite NEGATIVE Urine Bilirubin NEGATIVE Urine Urobilinogen NEGATIVE Urine Leukocyte NEGATIVE Esterase Urine Microscopic 4 RBC Urine Microscopic 0 WBC Urine Hemoglobin NEGATIVE Urine Glucose 3+ H Urine Total Protein 1+ H Test 11/28/18 00:15 11/28/18 03:45 11/28/18 04:55 11/28/18 04:56 Bedside Glucose 274 H 335 H White Blood Count 7.8 Red Blood Count 4.08 L Hemoglobin 12.3 Hematocrit 35.6 L Mean Corpuscular 87.3 Volume Mean Corpuscular 30.1 Hemoglobin Mean Corpuscular 34.6 Hemoglobin Concent Red Cell 11.9 Distribution Width Platelet Count 277 Mean Platelet Volume 9.9 Immature 0.100 Granulocytes % Neutrophils % 53.0 Lymphocytes % 37.4 Monocytes % 5.9 Eosinophils % 3.1 Basophils % 0.5 Nucleated Red Blood 0.0 Cells % Immature 0.010 Granulocytes # Neutrophils # 4.2 Lymphocytes # 2.9 Monocytes # 0.5 Eosinophils # 0.2 Basophils # 0.0 Nucleated Red Blood 0.0 Cells # Hemoglobin A1c Sodium Level 136 Potassium Level 3.4 L Chloride Level 107 # Carbon Dioxide Level 24 Anion Gap 5 Blood Urea Nitrogen 7 Creatinine 0.63 Est Glomerular > 60 Filtrat Rate mL/min Glucose Level 270 #H Calcium Level 8.3 L Phosphorus Level 3.1 Magnesium Level 1.7 Total Bilirubin 0.5 Direct Bilirubin 0.00 Indirect Bilirubin 0.5 Aspartate Amino 19 Transf (AST/SGOT) Alanine 17 Aminotransferase (AL T/SGPT) Alkaline Phosphatase 52 Total Protein 5.3 L Albumin 3.0 L Globulin 2.30 Albumin/Globulin 1.30 Ratio Triglycerides Level 103 Cholesterol Level 168 LDL Cholesterol, 95 Calculated HDL Cholesterol 52 Cholesterol/HDL 3.2 Ratio Test 11/28/18 06:16 11/28/18 08:40 11/28/18 10:55 11/28/18 12:56 Bedside Glucose 205 134 167 185 Subjective 24 Hr Interval Summary Skin: pruritis Exam/Review of Systems Exam Vitals Vital Signs Date Temp Pulse Resp B/P (MAP) Pulse Ox O2 O2 Flow FiO2 Time Delivery Rate 11/28/18 97.8 87 18 139/68 97 Room Air 08:08 (91) Intake and Output 11/27/18 11/27/18 11/28/18 1515:00 23:00 07:00 IntakeIntake Total 250 ml BalanceBalance 250 ml Constitutional: alert, oriented Respiratory: clear to auscultation Cardiovascular: regular rate and rhythm Gastrointestinal: soft; No distended Musculoskeletal: No nl extremities to inspection Results Results 24hrs Laboratory Tests Test 11/27/18 17:34 11/27/18 19:12 11/27/18 20:17 11/27/18 20:21 White Blood Count 8.7 Red Blood Count 4.99 Hemoglobin 14.8 Hematocrit 42.5 Mean Corpuscular 85.2 Volume Mean Corpuscular 29.7 Hemoglobin Mean Corpuscular 34.8 Hemoglobin Concent Red Cell 11.8 Distribution Width Platelet Count 342 Mean Platelet Volume 10.0 Immature 0.200 Granulocytes % Neutrophils % 63.4 Lymphocytes % 28.3 Monocytes % 5.4 Eosinophils % 2.2 Basophils % 0.5 Nucleated Red Blood 0.0 Cells % Immature 0.020 Granulocytes # Neutrophils # 5.5 Lymphocytes # 2.5 Monocytes # 0.5 Eosinophils # 0.2 Basophils # 0.0 Nucleated Red Blood 0.0 Cells # Sodium Level 132 L Potassium Level 4.4 Chloride Level 97 Carbon Dioxide Level 24 Anion Gap 11 Blood Urea Nitrogen 10 Creatinine 0.89 Est Glomerular > 60 Filtrat Rate mL/min Glucose Level 573 *H Bedside Glucose 538 *H 409 *H 343 H Calcium Level 9.8 Urine Color STRAW Urine Clarity CLEAR Urine pH 8.0 Urine Specific 1.027 [place] Urine Ketones TRACE A Urine Nitrite NEGATIVE Urine Bilirubin NEGATIVE Urine Urobilinogen NEGATIVE Urine Leukocyte NEGATIVE Esterase Urine Microscopic 4 RBC Urine Microscopic 0 WBC Urine Hemoglobin NEGATIVE Urine Glucose 3+ H Urine Total Protein 1+ H Test 11/28/18 00:15 11/28/18 03:45 11/28/18 04:55 11/28/18 04:56 Bedside Glucose 274 H 335 H White Blood Count 7.8 Red Blood Count 4.08 L Hemoglobin 12.3 Hematocrit 35.6 L Mean Corpuscular 87.3 Volume Mean Corpuscular 30.1 Hemoglobin Mean Corpuscular 34.6 Hemoglobin Concent Red Cell 11.9 Distribution Width Platelet Count 277 Mean Platelet Volume 9.9 Immature 0.100 Granulocytes % Neutrophils % 53.0 Lymphocytes % 37.4 Monocytes % 5.9 Eosinophils % 3.1 Basophils % 0.5 Nucleated Red Blood 0.0 Cells % Immature 0.010 Granulocytes # Neutrophils # 4.2 Lymphocytes # 2.9 Monocytes # 0.5 Eosinophils # 0.2 Basophils # 0.0 Nucleated Red Blood 0.0 Cells # Hemoglobin A1c Sodium Level 136 Potassium Level 3.4 L Chloride Level 107 # Carbon Dioxide Level 24 Anion Gap 5 Blood Urea Nitrogen 7 Creatinine 0.63 Est Glomerular > 60 Filtrat Rate mL/min Glucose Level 270 #H Calcium Level 8.3 L Phosphorus Level 3.1 Magnesium Level 1.7 Total Bilirubin 0.5 Direct Bilirubin 0.00 Indirect Bilirubin 0.5 Aspartate Amino 19 Transf (AST/SGOT) Alanine 17 Aminotransferase (AL T/SGPT) Alkaline Phosphatase 52 Total Protein 5.3 L Albumin 3.0 L Globulin 2.30 Albumin/Globulin 1.30 Ratio Triglycerides Level 103 Cholesterol Level 168 LDL Cholesterol, 95 Calculated HDL Cholesterol 52 Cholesterol/HDL 3.2 Ratio Test 11/28/18 06:16 11/28/18 08:40 11/28/18 10:55 11/28/18 12:56 Bedside Glucose 205 134 167 185 Medications Medication Current Medications Sodium Chloride 1,000 ml @ 100 mls/hr Q10H IV Last administered on 11/28/18at 02:24; Admin Dose 100 MLS/HR; Start 11/28/18 at 00:01 IV Flush (NS 3 ml) 3 ml PER PROTOCOL IV ; Start 11/28/18 at 00:30 Ondansetron HCl (Zofran Inj) 4 mg Q6H PRN IV NAUSEA/VOMITING; Start 11/28/18 at 00:30 Acetaminophen (Tylenol Tab) 650 mg Q6H PRN PO .PAIN 1-3 OR TEMP; Start 11/28/18 at 00:30 Albuterol/ Ipratropium (Duoneb) 3 ml Q2H RESP THERAPY PRN HHN SHORTNESS OF BREATH; Start 11/28/18 at 00:30 Diagnostic Test (Pha) (Accu-Chek) 1 ea 02 XX ; Start 11/28/18 at 02:00 Insulin Glargine (Lantus) 23 units DAILY@2000 SC Last administered on 11/28/18at 03:48; Admin Dose 23 UNITS; Start 11/28/18 at 00:30 Amlodipine Besylate (Norvasc) 10 mg DAILY PO Last administered on 11/28/18 08:52; Admin Dose 10 MG; Start 11/28/18 at 09:00 Aspirin (Halfprin) 81 mg DAILY PO Last administered on 11/28/18 08:44; Admin Dose 81 MG; Start 11/28/18 at 09:00 Atorvastatin Calcium (Lipitor) 80 mg QHS PO ; Start 11/28/18 at 21:00 Carisoprodol (Soma) 350 mg DAILY PRN PO MUSCLE SPASMS; Start 11/28/18 at 00:30 Clopidogrel Bisulfate (plaVIX) 75 mg DAILY PO Last administered on 11/28/18 08:43; Admin Dose 75 MG; Start 11/28/18 at 09:00 Docusate Sodium (Colace) 100 mg DAILY PO Last administered on 11/28/18 08:52; Admin Dose 100 MG; Start 11/28/18 at 09:00 Gabapentin (Neurontin) 300 mg TID PO Last administered on 11/28/18 13:33; Admin Dose 300 MG; Start 11/28/18 at 09:00 Acetaminophen/ Hydrocodone Bitart ([place] (10/325)) 1 tab Q6H PRN PO pain > 6 Last administered on 11/28/18 08:49; Admin Dose 1 TAB; Start 11/28/18 at 00:30 Isosorbide Mononitrate (Imdur) 30 mg DAILY PO Last administered on 11/28/18 08:45; Admin Dose 30 MG; Start 11/28/18 at 09:00 Loratadine (Claritin) 10 mg DAILY PO ; Start 11/28/18 at 09:00 Losartan Potassium (Cozaar) 50 mg DAILY PO Last administered on 11/28/18 08:43; Admin Dose 50 MG; Start 11/28/18 at 09:00 Metoprolol Succinate (Toprol Xl) 25 mg DAILY PO Last administered on 11/28/18 08:44; Admin Dose 25 MG; Start 11/28/18 at 09:00 Nitroglycerin (Nitroglycerin (Sl Tab) 0.4 Mg) 1 tab Q5M PRN SL CHEST PAIN; Start 11/28/18 at 00:30 Paroxetine HCl (Paxil) 30 mg HS PO ; Start 11/28/18 at 21:00 Miscellaneous Information 1 ea NOTE XX ; Start 11/28/18 at 00:30 Glucose (Glutose) 15 gm Q15M PRN PO DECREASED GLUCOSE; Start 11/28/18 at 00:30 Glucose (Glutose) 22.5 gm Q15M PRN PO DECREASED GLUCOSE; Start 11/28/18 at 00:30 Dextrose (D50w Syringe) 25 ml Q15M PRN IV DECREASED GLUCOSE; Start 11/28/18 at 00:30 Dextrose (D50w Syringe) 50 ml Q15M PRN IV DECREASED GLUCOSE; Start 11/28/18 at 00:30 Glucagon (Glucagen) 1 mg Q15M PRN IM DECREASED GLUCOSE; Start 11/28/18 at 00:30 Glucose (Glutose) 15 gm Q15M PRN BUCCAL DECREASED GLUCOSE; Start 11/28/18 at 00:30 Insulin Aspart (Novolog Insulin Pen) 8 unit WITH MEALS SC Last administered on 11/28/18at 13:01; Admin Dose 8 UNIT; Start 11/28/18 at 07:50 Lidocaine (Xylocaine 1% (Mdv) 20 ml) 20 ml ONCE PRN INJ Left third toenail procedure; Start 11/28/18 at 13:30 DELORES KIRKLAND November 28, 2018 14:48
[2018-11-28 15:35] VITALS: BP 107/62; PULSE 75; RESP 18
--- NOTE | 2018-11-28 19:22 | CONS ---
Assessment/Plan Assessment/Plan Assessment/Plan (Daily) Left 3rd digit toe nail trauma DM2 with peripheral neuropathy Hx of [place] Hx of CVA HTN Plan Consent was obtained and performed a left 3rd digit total toe nail avulsion. The left 3rd digit was prepped in sterile fashion and local anesthetic block provided to the digit. Copious betadine and saline lavage. Wound culture was obtained for left 3rd digit. betadine and dry sterile dressings were applied to the wound bed. Recommend daily application of bactroban and dry sterile dressings to the left 3rd toe nail. Patient may weight bear as tolerated. Recommend tight glycemic control and educated on signs/symptoms of infection to the toe nail trauma site. Recommend patient to follow up in outpatient wound clinic for further monitoring. Consultation Date/Type/Reason Admit Date/Time Date/Time of Note DATE: 11/28/18 TIME: 19:20 Hx of Present Illness 53 y/o F diabetic patient presents to the floor with loose left 3rd digit toe nail. Patient relates her toe nail got caught on the bed sheet yesterday and pulled the toe nail. Patient attempted to place a band aid to keep the nail in place. She presented to the ER for further management and also concerns for her diabetes being out of control. Patient denies constitutional symptoms. Patient relates sharp 6/10 pain to the left 3rd digit toe nail site worsened with direct pressure and relieved when not touching the toe nail. ROS Negative except for HPI Past Medical History [place], CVA with possible brain aneurysm, diabetes mellitus, diabetic neuropathy, mood disorder, hypertension Home Meds Reported Medications Salmeterol Xinaf-Fluticasone* (Advair*) 100/50 Diskus Inhaler, 1 INH INHALATION BID, #1 INHALER 11/27/18 Atorvastatin* (Atorvastatin*) 80 Mg Tablet, 80 MG PO QHS, #30 TAB 11/27/18 Losartan Potassium* (Losartan Potassium*) 50 Mg Tablet, 50 MG PO DAILY, TAB 11/27/18 Docusate Sodium* (Colace*) 100 Mg Capsule, 100 MG PO DAILY, #30 CAP 11/27/18 Gabapentin* (Gabapentin*) 300 Mg Capsule, 300 MG PO TID, #90 CAP 11/27/18 Metoprolol Succinate* (Toprol XL*) 25 Mg Tab.sr.24h, 25 MG PO DAILY, #30 TAB 11/27/18 Insulin Regular, Human (Humulin R U-500 Kwikpen) 500 Unit/1 Ml Insuln.pen, 25 UNIT SQ TID 11/27/18 Insulin Glargine* (Lantus*) 100 Unit/Ml Soln, 80 UNIT SC BID, #1 VIAL 11/27/18 Paroxetine Hcl* (Paroxetine*) 30 Mg Tablet, 30 MG PO HS, TAB 11/27/18 Clopidogrel Bisulfate* (Clopidogrel Bisulfate*) 75 Mg Tablet, 75 MG PO DAILY, #30 TAB 11/27/18 Isosorbide Mononitrate* (Isosorbide Mononitrate*) 30 Mg Tab.er.24h, 30 MG PO DAILY, TAB 11/27/18 Loratadine* (Loratadine*) 10 Mg Tablet, 10 MG PO DAILY, #30 TAB 11/27/18 Amlodipine Besylate* (Amlodipine Besylate*) 10 Mg Tablet, 10 MG PO DAILY, #30 TA B 11/27/18 Aspirin* (Aspirin* EC) 81 Mg Tablet.dr, 81 MG PO DAILY, TAB 11/27/18 Temazepam* (Temazepam*) 30 Mg Capsule, 30 MG PO HS PRN for INSOMNIA, CAP 11/27/18 Nitroglycerin* (Nitroglycerin* SL) 0.4 Mg Tab.subl, 0.4 MG SL Q5MIN PRN for CHEST PAIN, BOTTLE 11/27/18 Diphenhydramine Hcl (BANOPHEN) 50 Mg Capsule, 50 MG PO NEEDED, CAP 11/27/18 Hydrocodone/Acetaminophen ([place] 10-325 Tablet) 1 Each Tablet, 1 EACH PO Q6H, TAB 11/27/18 Carisoprodol* (Carisoprodol*) 350 Mg Tablet, 350 MG PO DAILY PRN for MUSCLE SPASMS, TAB 11/27/18 Discontinued Reported Medications Temazepam* (Temazepam*) 30 Mg Capsule, 30 MG PO HS PRN for INSOMNIA, CAP 03/04/18 Nortriptyline Hcl* (Nortriptyline Hcl*) 50 Mg Capsule, 50 MG PO QHS, TAB 03/04/18 Insulin Human Regular (Novolin-R U-100) 100 Unit/Ml Soln, 30 UNITS SC AC MEALS A ND BEDTIME, EA 03/04/18 Hydrocodone/Acetaminophen ([place] 10-325 Tablet) 1 Each Tablet, 1 EACH PO QID PRN for PAIN, TAB 03/04/18 Diphenhydramine Hcl* (Benadryl*) 50 Mg Cap, 50 MG PO Q6 PRN for ITCHING, CAP 03/04/18 Linagliptin (TRADJENTA) 5 Mg Tablet, 5 MG PO DAILY, TAB 03/04/18 Pantoprazole* (Protonix*) 20 Mg Tablet.dr, 20 MG PO BID, TAB 03/04/18 Metformin Hcl* (Metformin Hcl*) 500 Mg Tablet, 500 MG PO WITH BREAKFAST DINNE, #60 TAB 03/04/18 Insulin Glargine* (Lantus*) 100 Unit/Ml Soln, 80 UNIT SC BID, #1 VIAL 03/04/18 Isosorbide Mononitrate* (Isosorbide Mononitrate*) 30 Mg Tab.er.24h, 30 MG PO DAILY, TAB 02/12/18 Carisoprodol* (Carisoprodol*) 350 Mg Tablet, 350 MG PO DAILY PRN for MUSCLE SPASMS, TAB 02/12/18 Metoprolol Succinate* (Toprol XL*) 25 Mg Tab.sr.24h, 25 MG PO DAILY, #30 TAB 02/12/18 Paroxetine Hcl* (Paroxetine*) 30 Mg Tablet, 30 MG PO HS, TAB 02/12/18 Gabapentin* (Gabapentin*) 300 Mg Capsule, 300 MG PO QHS, #60 CAP 02/12/18 Ranolazine* (Ranexa*) 500 Mg Tab.sr.12h, 500 MG PO Q12, TAB 02/12/18 Nitroglycerin* (Nitrostat*) 0.4 Mg Tab.subl, 0.4 MG SL Q5MIN PRN for CHEST PAIN, BOTTLE 02/12/18 Aripiprazole* (Abilify*) 10 Mg Tablet, 10 MG PO QHS, #30 TAB 02/12/18 Docusate Sodium* (Colace*) 100 Mg Capsule, 100 MG PO Q24H PRN for CONSTIPATION, #30 CAP 02/12/18 Discontinued Scripts Hydrocodone/Acetaminophen ([place] 10-325 Tablet) 1 Each Tablet, 1 TAB PO Q6H PRN for PAIN, #7 TAB Prov:JENNIFER ATWOOD DO 06/29/18 Losartan Potassium* (Losartan Potassium*) 50 Mg Tablet, 50 MG PO DAILY, #30 TAB 1 Refill Prov:TANK HILL 03/06/18 Atorvastatin* (Atorvastatin*) 80 Mg Tablet, 80 MG PO QHS for 30 Days, #30 TAB 2 Refills Prov:TANK HILL 03/06/18 Clopidogrel Bisulfate (Clopidogrel) 75 Mg Tablet, 75 MG PO DAILY for 30 Days, #30 TAB 9 Refills Prov:TANK HILL 03/06/18 Aspirin* (Aspirin* EC) 81 Mg Tablet.dr, 81 MG PO DAILY for 30 Days, #30 TAB 9 Refills Prov:TANK HILL 03/06/18 Medications Current Medications Sodium Chloride 1,000 ml @ 100 mls/hr Q10H IV Last administered on 11/28/18at 17:03; Admin Dose 100 MLS/HR; Start 11/28/18 at 00:01 IV Flush (NS 3 ml) 3 ml PER PROTOCOL IV ; Start 11/28/18 at 00:30 Ondansetron HCl (Zofran Inj) 4 mg Q6H PRN IV NAUSEA/VOMITING; Start 11/28/18 at 00:30 Acetaminophen (Tylenol Tab) 650 mg Q6H PRN PO .PAIN 1-3 OR TEMP; Start 11/28/18 at 00:30 Albuterol/ Ipratropium (Duoneb) 3 ml Q2H RESP THERAPY PRN HHN SHORTNESS OF BREATH; Start 11/28/18 at 00:30 Insulin Glargine (Lantus) 23 units DAILY@2000 SC Last administered on 11/28/18at 03:48; Admin Dose 23 UNITS; Start 11/28/18 at 00:30 Amlodipine Besylate (Norvasc) 10 mg DAILY PO Last administered on 11/28/18at 08:52; Admin Dose 10 MG; Start 11/28/18 at 09:00 Aspirin (Halfprin) 81 mg DAILY PO Last administered on 11/28/18at 08:44; Admin Dose 81 MG; Start 11/28/18 at 09:00 Atorvastatin Calcium (Lipitor) 80 mg QHS PO ; Start 11/28/18 at 21:00 Carisoprodol (Soma) 350 mg DAILY PRN PO MUSCLE SPASMS; Start 11/28/18 at 00:30 Clopidogrel Bisulfate (plaVIX) 75 mg DAILY PO Last administered on 11/28/18at 08:43; Admin Dose 75 MG; Start 11/28/18 at 09:00 Docusate Sodium (Colace) 100 mg DAILY PO Last administered on 11/28/18at 08:52; Admin Dose 100 MG; Start 11/28/18 at 09:00 Gabapentin (Neurontin) 300 mg TID PO Last administered on 11/28/18at 13:33; Admin Dose 300 MG; Start 11/28/18 at 09:00 Acetaminophen/ Hydrocodone Bitart ([place] (10/325)) 1 tab Q6H PRN PO pain > 6 Last administered on 11/28/18at 17:08; Admin Dose 1 TAB; Start 11/28/18 at 00:30 Isosorbide Mononitrate (Imdur) 30 mg DAILY PO Last administered on 11/28/18at 08:45; Admin Dose 30 MG; Start 11/28/18 at 09:00 Loratadine (Claritin) 10 mg DAILY PO ; Start 11/28/18 at 09:00 Losartan Potassium (Cozaar) 50 mg DAILY PO Last administered on 11/28/18at 08:4 3; Admin Dose 50 MG; Start 11/28/18 at 09:00 Metoprolol Succinate (Toprol Xl) 25 mg DAILY PO Last administered on 11/28/18 08:44; Admin Dose 25 MG; Start 11/28/18 at 09:00 Nitroglycerin (Nitroglycerin (Sl Tab) 0.4 Mg) 1 tab Q5M PRN SL CHEST PAIN; Start 11/28/18 at 00:30 Paroxetine HCl (Paxil) 30 mg HS PO ; Start 11/28/18 at 21:00 Miscellaneous Information 1 ea NOTE XX ; Start 11/28/18 at 00:30 Glucose (Glutose) 15 gm Q15M PRN PO DECREASED GLUCOSE; Start 11/28/18 at 00:30 Glucose (Glutose) 22.5 gm Q15M PRN PO DECREASED GLUCOSE; Start 11/28/18 at 00:30 Dextrose (D50w Syringe) 25 ml Q15M PRN IV DECREASED GLUCOSE; Start 11/28/18 at 00:30 Dextrose (D50w Syringe) 50 ml Q15M PRN IV DECREASED GLUCOSE; Start 11/28/18 at 00:30 Glucagon (Glucagen) 1 mg Q15M PRN IM DECREASED GLUCOSE; Start 11/28/18 at 00:30 Glucose (Glutose) 15 gm Q15M PRN BUCCAL DECREASED GLUCOSE; Start 11/28/18 at 00:30 Insulin Aspart (Novolog Insulin Pen) 8 unit WITH MEALS SC Last administered on 11/28/18at 18:20; Admin Dose 8 UNIT; Start 11/28/18 at 07:50 Lidocaine (Xylocaine 1% (Mdv) 20 ml) 20 ml ONCE PRN INJ Left third toenail procedure; Start 11/28/18 at 13:30 Diagnostic Test (Pha) (Accu-Chek) 1 ea 02 XX ; Start 11/29/18 at 02:00 Insulin Aspart (Novolog Insulin Pen) NOVOLOG *MODERATE* ALGORITHM WITH MEALS B EDTIME SC ; Start 11/28/18 at 21:00 Allergies: Coded Allergies: ampicillin (Verified Allergy, Unknown, 11/27/18) sulbactam (Verified Allergy, Unknown, 11/27/18) Past Surgical History none reported Past Surgical Hx: other Family History Significant Family History: heart disease, diabetes, renal disease Social History Smoking Status: Never smoker Exam/Review of Systems Exam Vitals Vital Signs Date Temp Pulse Resp B/P (MAP) Pulse Ox O2 O2 Flow FiO2 Time Delivery Rate 11/28/18 98.6 75 18 107/62 96 Room Air 15:35 (77) Intake and Output 11/27/18 11/27/18 11/28/18 1515:00 23:00 07:00 IntakeIntake Total 250 ml BalanceBalance 250 ml Exam DP/PT pulses palpable CFT less than 3 seconds to the digits Absent protective sensations Pain on palpation to the left 3rd digit toe nail Left 3rd digit toe nail loosely adhered, no surrounding erythema, no proximal streaking. Scant seropurulent drainage appreciated Muscle strength 5/5 in all compartments of the foot. Results Result Diagram: 11/28/18 0455 11/28/18 0456 Results 24hrs Laboratory Tests Test 11/27/18 20:17 11/27/18 20:21 11/28/18 00:15 11/28/18 03:45 Urine Color STRAW Urine Clarity CLEAR Urine pH 8.0 Urine Specific 1.027 [place] Urine Ketones TRACE A Urine Nitrite NEGATIVE Urine Bilirubin NEGATIVE Urine Urobilinogen NEGATIVE Urine Leukocyte NEGATIVE Esterase Urine Microscopic 4 RBC Urine Microscopic 0 WBC Urine Hemoglobin NEGATIVE Urine Glucose 3+ H Urine Total Protein 1+ H Bedside Glucose 343 H 274 H 335 H Test 11/28/18 04:55 11/28/18 04:56 11/28/18 06:16 11/28/18 08:40 White Blood Count 7.8 Red Blood Count 4.08 L Hemoglobin 12.3 Hematocrit 35.6 L Mean Corpuscular 87.3 Volume Mean Corpuscular 30.1 Hemoglobin Mean Corpuscular 34.6 Hemoglobin Concent Red Cell 11.9 Distribution Width Platelet Count 277 Mean Platelet Volume 9.9 Immature 0.100 Granulocytes % Neutrophils % 53.0 Lymphocytes % 37.4 Monocytes % 5.9 Eosinophils % 3.1 Basophils % 0.5 Nucleated Red Blood 0.0 Cells % Immature 0.010 Granulocytes # Neutrophils # 4.2 Lymphocytes # 2.9 Monocytes # 0.5 Eosinophils # 0.2 Basophils # 0.0 Nucleated Red Blood 0.0 Cells # Hemoglobin A1c Sodium Level 136 Potassium Level 3.4 L Chloride Level 107 # Carbon Dioxide Level 24 Anion Gap 5 Blood Urea Nitrogen 7 Creatinine 0.63 Est Glomerular > 60 Filtrat Rate mL/min Glucose Level 270 #H Calcium Level 8.3 L Phosphorus Level 3.1 Magnesium Level 1.7 Total Bilirubin 0.5 Direct Bilirubin 0.00 Indirect Bilirubin 0.5 Aspartate Amino 19 Transf (AST/SGOT) Alanine 17 Aminotransferase (AL T/SGPT) Alkaline Phosphatase 52 Total Protein 5.3 L Albumin 3.0 L Globulin 2.30 Albumin/Globulin 1.30 Ratio Triglycerides Level 103 Cholesterol Level 168 LDL Cholesterol, 95 Calculated HDL Cholesterol 52 Cholesterol/HDL 3.2 Ratio Bedside Glucose 205 134 Test 11/28/18 10:55 11/28/18 12:56 11/28/18 17:55 Bedside Glucose 167 185 306 H Medications Medication Current Medications Sodium Chloride 1,000 ml @ 100 mls/hr Q10H IV Last administered on 11/28/18at 17:03; Admin Dose 100 MLS/HR; Start 11/28/18 at 00:01 IV Flush (NS 3 ml) 3 ml PER PROTOCOL IV ; Start 11/28/18 at 00:30 Ondansetron HCl (Zofran Inj) 4 mg Q6H PRN IV NAUSEA/VOMITING; Start 11/28/18 at 00:30 Acetaminophen (Tylenol Tab) 650 mg Q6H PRN PO .PAIN 1-3 OR TEMP; Start 11/28/18 at 00:30 Albuterol/ Ipratropium (Duoneb) 3 ml Q2H RESP THERAPY PRN HHN SHORTNESS OF BREATH; Start 11/28/18 at 00:30 Insulin Glargine (Lantus) 23 units DAILY@2000 SC Last administered on 11/28/18 03:48; Admin Dose 23 UNITS; Start 11/28/18 at 00:30 Amlodipine Besylate (Norvasc) 10 mg DAILY PO Last administered on 11/28/18 08:52; Admin Dose 10 MG; Start 11/28/18 at 09:00 Aspirin (Halfprin) 81 mg DAILY PO Last administered on 11/28/18 08:44; Admin Dose 81 MG; Start 11/28/18 at 09:00 Atorvastatin Calcium (Lipitor) 80 mg QHS PO ; Start 11/28/18 at 21:00 Carisoprodol (Soma) 350 mg DAILY PRN PO MUSCLE SPASMS; Start 11/28/18 at 00:30 Clopidogrel Bisulfate (plaVIX) 75 mg DAILY PO Last administered on 11/28/18 08:43; Admin Dose 75 MG; Start 11/28/18 at 09:00 Docusate Sodium (Colace) 100 mg DAILY PO Last administered on 11/28/18 08:52; Admin Dose 100 MG; Start 11/28/18 at 09:00 Gabapentin (Neurontin) 300 mg TID PO Last administered on 11/28/18 13:33; Admin Dose 300 MG; Start 11/28/18 at 09:00 Acetaminophen/ Hydrocodone Bitart ([place] (10/325)) 1 tab Q6H PRN PO pain > 6 Last administered on 11/28/18 17:08; Admin Dose 1 TAB; Start 11/28/18 at 00:30 Isosorbide Mononitrate (Imdur) 30 mg DAILY PO Last administered on 11/28/18 08:45; Admin Dose 30 MG; Start 11/28/18 at 09:00 Loratadine (Claritin) 10 mg DAILY PO ; Start 11/28/18 at 09:00 Losartan Potassium (Cozaar) 50 mg DAILY PO Last administered on 11/28/18 08:43; Admin Dose 50 MG; Start 5/22/19 at 09:00 Metoprolol Succinate (Toprol Xl) 25 mg DAILY PO Last administered on 11/28/18at 08:44; Admin Dose 25 MG; Start 11/28/18 at 09:00 Nitroglycerin (Nitroglycerin (Sl Tab) 0.4 Mg) 1 tab Q5M PRN SL CHEST PAIN; Start 11/28/18 at 00:30 Paroxetine HCl (Paxil) 30 mg HS PO ; Start 11/28/18 at 21:00 Miscellaneous Information 1 ea NOTE XX ; Start 11/28/18 at 00:30 Glucose (Glutose) 15 gm Q15M PRN PO DECREASED GLUCOSE; Start 11/28/18 at 00:30 Glucose (Glutose) 22.5 gm Q15M PRN PO DECREASED GLUCOSE; Start 11/28/18 at 00:30 Dextrose (D50w Syringe) 25 ml Q15M PRN IV DECREASED GLUCOSE; Start 11/28/18 at 00:30 Dextrose (D50w Syringe) 50 ml Q15M PRN IV DECREASED GLUCOSE; Start 11/28/18 at 00:30 Glucagon (Glucagen) 1 mg Q15M PRN IM DECREASED GLUCOSE; Start 11/28/18 at 00:30 Glucose (Glutose) 15 gm Q15M PRN BUCCAL DECREASED GLUCOSE; Start 11/28/18 at 00:30 Insulin Aspart (Novolog Insulin Pen) 8 unit WITH MEALS SC Last administered on 11/28/18at 18:20; Admin Dose 8 UNIT; Start 11/28/18 at 07:50 Lidocaine (Xylocaine 1% (Mdv) 20 ml) 20 ml ONCE PRN INJ Left third toenail procedure; Start 11/28/18 at 13:30 Diagnostic Test (Pha) (Accu-Chek) 1 ea 02 XX ; Start 11/29/18 at 02:00 Insulin Aspart (Novolog Insulin Pen) NOVOLOG *MODERATE* ALGORITHM WITH MEALS BEDTIME SC ; Start 11/28/18 at 21:00 TERESA SNYDER DPM November 28, 2018 19:22
[2018-11-28] MEDS ORDERED: morphine 2 MG INJ IV ONE (20:00)
[2018-11-28 20:37] VITALS: BP 125/73; PULSE 79; RESP 18
[2018-11-28] MEDS ORDERED: ATORVASTATIN 80 MG TAB PO SCH (21:00)
[2018-11-28] MEDS ORDERED: PAROXETINE 10 MG TAB PO SCH (21:00)
[2018-11-28] MEDS ORDERED: DIPHENHYDRAMINE 50 MG CAP ONE (22:50)
[2018-11-29] MEDS ORDERED: ACCU-CHEK XX SCH (02:00)
[2018-11-29 02:18] VITALS: BP 122/68; PULSE 72; RESP 16
[2018-11-29] MEDS ORDERED: INSULIN ASPART [NOVOLOG] 3 ML PEN SC ONE (04:30)
[2018-11-29] MEDS ORDERED: ACCU-CHEK XX ONE (06:30)
[2018-11-29] MEDS: SOD CHLORIDE 0.9% 1,000 ML IV SCH (06:34)
[2018-11-29 08:11] VITALS: BP 127/74; PULSE 74; RESP 18
--- NOTE | 2018-11-29 08:37 | CONS ---
Assessment/Plan Assessment/Plan Assessment/Plan (Daily) Left 3rd digit toe nail trauma DM2 with peripheral neuropathy Hx of [place] Hx of CVA HTN Plan Patient stable from podiatry standpoint. Wound culture pending. Recommend daily application of bactroban and band-aid to the left 3rd toe nail. Patient may weight bear as tolerated. Recommend tight glycemic control and educated on signs/symptoms of infection to the toe nail trauma site. Recommend patient to follow up in outpatient wound clinic for further monitoring. Consultation Date/Type/Reason Admit Date/Time November 27, 2018 at 20:29 Initial Consult Date Date/Time of Note DATE: 11/29/18 TIME: 08:37 24 HR Interval Summary Free Text/Dictation No acute events overnight Exam/Review of Systems Exam Vitals Vital Signs Date Temp Pulse Resp B/P (MAP) Pulse Ox O2 O2 Flow FiO2 Time Delivery Rate 11/29/18 97.8 74 18 127/74 94 Room Air 08:11 (91) Intake and Output 11/28/18 11/28/18 11/29/18 1515:00 23:00 07:00 IntakeIntake Total 1020 ml 1510 ml 1000 ml BalanceBalance 1020 ml 1510 ml 1000 ml Exam DP/PT pulses palpable CFT less than 3 seconds to the digits Absent protective sensations Pain on palpation to the left 3rd digit toe nail Left 3rd digit nail bed granular, no signs of ischemic changes, no purulence appreciated, no proximal streaking, no erythema Muscle strength 5/5 in all compartments of the foot. Results Result Diagram: 11/28/18 0455 11/29/18 0434 Results 24hrs Laboratory Tests Test 11/28/18 08:40 11/28/18 10:55 11/28/18 12:56 11/28/18 17:55 Bedside Glucose 134 167 185 306 H Test 11/28/18 20:51 11/29/18 02:24 11/29/18 02:27 11/29/18 03:49 Bedside Glucose 293 H 325 H 352 H 324 H Test 11/29/18 04:34 11/29/18 06:37 Sodium Level 134 L Potassium Level 3.9 Chloride Level 106 Carbon Dioxide Level 24 Anion Gap 4 L Blood Urea Nitrogen 14 Creatinine 0.62 Est Glomerular > 60 Filtrat Rate mL/min Glucose Level 323 H Calcium Level 8.4 Phosphorus Level 4.2 Magnesium Level 1.7 Bedside Glucose 182 Medications Medication Current Medications Sodium Chloride 1,000 ml @ 100 mls/hr Q10H IV Last administered on 11/29/18 06:34; Admin Dose 100 MLS/HR; Start 11/28/18 at 00:01 IV Flush (NS 3 ml) 3 ml PER PROTOCOL IV ; Start 11/28/18 at 00:30 Ondansetron HCl (Zofran Inj) 4 mg Q6H PRN IV NAUSEA/VOMITING; Start 11/28/18 at 00:30 Acetaminophen (Tylenol Tab) 650 mg Q6H PRN PO .PAIN 1-3 OR TEMP; Start 11/28/18 at 00:30 Albuterol/ Ipratropium (Duoneb) 3 ml Q2H RESP THERAPY PRN HHN SHORTNESS OF BREATH; Start 11/28/18 at 00:30 Insulin Glargine (Lantus) 23 units DAILY@2000 SC Last administered on 11/28/18at 20:49; Admin Dose 23 UNITS; Start 11/28/18 at 00:30 Amlodipine Besylate (Norvasc) 10 mg DAILY PO Last administered on 11/28/18 08:52; Admin Dose 10 MG; Start 11/28/18 at 09:00 Aspirin (Halfprin) 81 mg DAILY PO Last administered on 11/28/18 08:44; Admin Dose 81 MG; Start 11/28/18 at 09:00 Atorvastatin Calcium (Lipitor) 80 mg QHS PO Last administered on 11/28/18 20:46; Admin Dose 80 MG; Start 11/28/18 at 21:00 Carisoprodol (Soma) 350 mg DAILY PRN PO MUSCLE SPASMS; Start 11/28/18 at 00:30 Clopidogrel Bisulfate (plaVIX) 75 mg DAILY PO Last administered on 11/28/18 08:43; Admin Dose 75 MG; Start 11/28/18 at 09:00 Docusate Sodium (Colace) 100 mg DAILY PO Last administered on 11/28/18 08:52; Admin Dose 100 MG; Start 11/28/18 at 09:00 Gabapentin (Neurontin) 300 mg TID PO Last administered on 11/28/18 20:46; Admin Dose 300 MG; Start 11/28/18 at 09:00 Acetaminophen/ Hydrocodone Bitart ([place] (10/325)) 1 tab Q6H PRN PO pain > 6 Last administered on 11/28/18at 17:08; Admin Dose 1 TAB; Start 11/28/18 at 00:30 Isosorbide Mononitrate (Imdur) 30 mg DAILY PO Last administered on 11/28/18at 08:45; Admin Dose 30 MG; Start 11/28/18 at 09:00 Loratadine (Claritin) 10 mg DAILY PO ; Start 11/28/18 at 09:00 Losartan Potassium (Cozaar) 50 mg DAILY PO Last administered on 11/28/18at 08:43; Admin Dose 50 MG; Start 11/28/18 at 09:00 Metoprolol Succinate (Toprol Xl) 25 mg DAILY PO Last administered on 11/28/18at 08:44; Admin Dose 25 MG; Start 11/28/18 at 09:00 Nitroglycerin (Nitroglycerin (Sl Tab) 0.4 Mg) 1 tab Q5M PRN SL CHEST PAIN; Start 11/28/18 at 00:30 Paroxetine HCl (Paxil) 30 mg HS PO Last administered on 11/28/18at 20:46; Admin Dose 30 MG; Start 11/28/18 at 21:00 Miscellaneous Information 1 ea NOTE XX ; Start 11/28/18 at 00:30 Glucose (Glutose) 15 gm Q15M PRN PO DECREASED GLUCOSE; Start 11/28/18 at 00:30 Glucose (Glutose) 22.5 gm Q15M PRN PO DECREASED GLUCOSE; Start 11/28/18 at 00:30 Dextrose (D50w Syringe) 25 ml Q15M PRN IV DECREASED GLUCOSE; Start 11/28/18 at 00:30 Dextrose (D50w Syringe) 50 ml Q15M PRN IV DECREASED GLUCOSE; Start 11/28/18 at 00:30 Glucagon (Glucagen) 1 mg Q15M PRN IM DECREASED GLUCOSE; Start 11/28/18 at 00:30 Glucose (Glutose) 15 gm Q15M PRN BUCCAL DECREASED GLUCOSE; Start 11/28/18 at 00:30 Insulin Aspart (Novolog Insulin Pen) 8 unit WITH MEALS SC Last administered on 11/28/18at 18:20; Admin Dose 8 UNIT; Start 11/28/18 at 07:50 Lidocaine (Xylocaine 1% (Mdv) 20 ml) 20 ml ONCE PRN INJ Left third toenail procedure; Start 11/28/18 at 13:30 Diagnostic Test (Pha) (Accu-Chek) 1 ea 02 XX Last administered on 11/29/18at 02:30; Admin Dose 1 EA; Start 11/29/18 at 02:00 Insulin Aspart (Novolog Insulin Pen) NOVOLOG *MODERATE* ALGORITHM WITH MEALS BEDTIME SC Last administered on 11/28/18at 20:57; Admin Dose 3 UNIT; Start 11/28/18 at 21:00 Mupirocin (Bactroban) 1 applic DAILY TOP ; Start 11/29/18 at 09:00 TERESA SNYDER DPM November 29, 2018 08:37
[2018-11-29] MEDS ORDERED: MUPIROCIN 2% 22 GM OINT TOP SCH (09:00)
[2018-11-29] MEDS: GABAPENTIN 300 MG CAP PO SCH ×2 (09:23→13:26)
[2018-11-29] MEDS: DOCUSATE SODIUM 100 MG CAP PO SCH (09:23)
[2018-11-29] MEDS: AMLODIPINE 10 MG TAB PO SCH (09:23)
[2018-11-29] MEDS: CLOPIDOGREL 75 MG TAB PO SCH (09:23)
[2018-11-29] MEDS: LOSARTAN 50 MG TAB PO SCH (09:24)
[2018-11-29] MEDS: ASPIRIN (EC) 81 MG TAB PO SCH (09:24)
[2018-11-29] MEDS: METOPROLOL (XL) 25 MG TAB PO SCH (09:24)
[2018-11-29] MEDS: ISOSORBIDE MONONITRATE(SR)30 MG TAB PO SCH (09:24)
[2018-11-29] MEDS: HYDROCODONE/APAP (10/325) TAB PO PRN (09:24)
[2018-11-29] MEDS: LORATADINE 10 MG TAB PO SCH (09:24)
[2018-11-29] MEDS: INSULIN ASPART [NOVOLOG] 3 ML PEN SC SCH ×4 (09:34→12:52)
[2018-11-29] MEDS ORDERED: MUPI22OI2 TOP (09:50)
--- NOTE | 2018-11-29 09:51 | PDOCDIS ---
Discharge Instructions CONDITION [id number] Patient Condition: [id number] Good HOME CARE INSTRUCTIONS: [id number] Special Diet: [id number] DIABETIC ACTIVITY: [id number] Activity Restrictions: [id number] No Restrictions FOLLOW UP/APPOINTMENTS Follow-up Plan FOLLOW UP WITH YOUR PCP IN 1-2 WEEKS DELORES KIRKLAND November 29, 2018 09:51
--- NOTE | 2018-11-29 17:43 | DS ---
Date/Time of Note Date/Time of Note DATE: 11/29/18 TIME: 17:40 Discharge Summary Admission/Discharge Info Admit Date/Time November 27, 2018 at 20:29 Discharge Date/Time November 29, 2018 at 16:40 Discharge Diagnosis 1. Diabetes, insulin-dependent: With hyperglycemia, no DKA -Patient on very high-dose Lantus and short-acting insulin -She reports being compliant with her medications -Sugars now stable -museum educator consultation appreciated -Status post insulin and IV fluid -A1c is undetectable -Patient follows up with criminal profiler as an outpatient 2. Diabetic toenail separation -Podiatry consultation appreciated, recommendation is to DC with Bactroban and apply Band-Aid to toenail 2. History of hypertension: Continue med 3. History of AR, no history of stent: Continue home meds including antiplatelet and antilipid 4. Hypertension: BP was in acceptable range. Continue meds 5. History of stroke, possible history of brain aneurysm -Continue statin and antiplatelet 6. Mood disorder: Continue paroxetine 7. Pruritus -Benadryl Patient Condition: Good Hospital Course Patient is a 53-year-old female with history of diabetes, hypertension, AR, CVA, mood disorder who presents with hyperglycemia. Patient had no evidence of DKA, sugars stabilized with insulin IV fluids, patient does report being compliant. Patient's A1c is undetectable. Adherence to insulin regimen was strongly advised, patient was seen by life skills educator. Patient was seen by podiatry for loose toenail, recommendation was for Bactroban ointment and Band-Aid to the nailbed. Patient was stable for DC, on the day of discharge patient's vitals, labs and physical exam are stable. Home Meds Active Scripts Mupirocin* (Bactroban*) 2% -22 Gram Oint...g., 1 APPLIC TOP DAILY, #1 TUB Prov:DELORES KIRKLAND 11/29/18 Reported Medications Salmeterol Xinaf-Fluticasone* (Advair*) 100/50 Diskus Inhaler, 1 INH INHALATION BID, #1 INHALER 11/27/18 Atorvastatin* (Atorvastatin*) 80 Mg Tablet, 80 MG PO QHS, #30 TAB 11/27/18 Losartan Potassium* (Losartan Potassium*) 50 Mg Tablet, 50 MG PO DAILY, TAB 11/27/18 Docusate Sodium* (Colace*) 100 Mg Capsule, 100 MG PO DAILY, #30 CAP 11/27/18 Gabapentin* (Gabapentin*) 300 Mg Capsule, 300 MG PO TID, #90 CAP 11/27/18 Metoprolol Succinate* (Toprol XL*) 25 Mg Tab.sr.24h, 25 MG PO DAILY, #30 TAB 11/27/18 Insulin Regular, Human (Humulin R U-500 Kwikpen) 500 Unit/1 Ml Insuln.pen, 25 UNIT SQ TID 11/27/18 Insulin Glargine* (Lantus*) 100 Unit/Ml Soln, 80 UNIT SC BID, #1 VIAL 11/27/18 Paroxetine Hcl* (Paroxetine*) 30 Mg Tablet, 30 MG PO HS, TAB 11/27/18 Clopidogrel Bisulfate* (Clopidogrel Bisulfate*) 75 Mg Tablet, 75 MG PO DAILY, #30 TAB 11/27/18 Isosorbide Mononitrate* (Isosorbide Mononitrate*) 30 Mg Tab.er.24h, 30 MG PO DAILY, TAB 11/27/18 Loratadine* (Loratadine*) 10 Mg Tablet, 10 MG PO DAILY, #30 TAB 11/27/18 Amlodipine Besylate* (Amlodipine Besylate*) 10 Mg Tablet, 10 MG PO DAILY, #30 TAB 11/27/18 Aspirin* (Aspirin* EC) 81 Mg Tablet.dr, 81 MG PO DAILY, TAB 11/27/18 Temazepam* (Temazepam*) 30 Mg Capsule, 30 MG PO HS PRN for INSOMNIA, CAP 11/27/18 Nitroglycerin* (Nitroglycerin* SL) 0.4 Mg Tab.subl, 0.4 MG SL Q5MIN PRN for CHEST PAIN, BOTTLE 11/27/18 Diphenhydramine Hcl (BANOPHEN) 50 Mg Capsule, 50 MG PO NEEDED, CAP 11/27/18 Hydrocodone/Acetaminophen (Vanduser 10-325 Tablet) 1 Each Tablet, 1 EACH PO Q6H, TAB 11/27/18 Carisoprodol* (Carisoprodol*) 350 Mg Tablet, 350 MG PO DAILY PRN for MUSCLE SPASMS, TAB 11/27/18 Discontinued Reported Medications Temazepam* (Temazepam*) 30 Mg Capsule, 30 MG PO HS PRN for INSOMNIA, CAP 03/04/18 Nortriptyline Hcl* (Nortriptyline Hcl*) 50 Mg Capsule, 50 MG PO QHS, TAB 03/04/18 Insulin Human Regular (Novolin-R U-100) 100 Unit/Ml Soln, 30 UNITS SC AC MEALS AND BEDTIME, EA 03/04/18 Hydrocodone/Acetaminophen (Vanduser 10-325 Tablet) 1 Each Tablet, 1 EACH PO QID PRN for PAIN, TAB 03/04/18 Diphenhydramine Hcl* (Benadryl*) 50 Mg Cap, 50 MG PO Q6 PRN for ITCHING, CAP 03/04/18 Linagliptin (TRADJENTA) 5 Mg Tablet, 5 MG PO DAILY, TAB 03/04/18 Pantoprazole* (Protonix*) 20 Mg Tablet.dr, 20 MG PO BID, TAB 03/04/18 Metformin Hcl* (Metformin Hcl*) 500 Mg Tablet, 500 MG PO WITH BREAKFAST DINNE, #60 TAB 03/04/18 Insulin Glargine* (Lantus*) 100 Unit/Ml Soln, 80 UNIT SC BID, #1 VIAL 03/04/18 Isosorbide Mononitrate* (Isosorbide Mononitrate*) 30 Mg Tab.er.24h, 30 MG PO DAILY, TAB 02/12/18 Carisoprodol* (Carisoprodol*) 350 Mg Tablet, 350 MG PO DAILY PRN for MUSCLE SPAS MS, TAB 02/12/18 Metoprolol Succinate* (Toprol XL*) 25 Mg Tab.sr.24h, 25 MG PO DAILY, #30 TAB 02/12/18 Paroxetine Hcl* (Paroxetine*) 30 Mg Tablet, 30 MG PO HS, TAB 02/12/18 Gabapentin* (Gabapentin*) 300 Mg Capsule, 300 MG PO QHS, #60 CAP 02/12/18 Ranolazine* (Ranexa*) 500 Mg Tab.sr.12h, 500 MG PO Q12, TAB 02/12/18 Nitroglycerin* (Nitrostat*) 0.4 Mg Tab.subl, 0.4 MG SL Q5MIN PRN for CHEST PAIN, BOTTLE 02/12/18 Aripiprazole* (Abilify*) 10 Mg Tablet, 10 MG PO QHS, #30 TAB 02/12/18 Docusate Sodium* (Colace*) 100 Mg Capsule, 100 MG PO Q24H PRN for CONSTIPATION, #30 CAP 02/12/18 Discontinued Scripts Hydrocodone/Acetaminophen (Vanduser 10-325 Tablet) 1 Each Tablet, 1 TAB PO Q6H PRN for PAIN, #7 TAB Prov:JENNIFER ATWOOD DO 06/29/18 Losartan Potassium* (Losartan Potassium*) 50 Mg Tablet, 50 MG PO DAILY, #30 TAB 1 Refill Prov:TANK HILL 03/06/18 Atorvastatin* (Atorvastatin*) 80 Mg Tablet, 80 MG PO QHS for 30 Days, #30 TAB 2 Refills Prov:TANK HILL 03/06/18 Clopidogrel Bisulfate (Clopidogrel) 75 Mg Tablet, 75 MG PO DAILY for 30 Days, #30 TAB 9 Refills Prov:TANK HILL 03/06/18 Aspirin* (Aspirin* EC) 81 Mg Tablet.dr, 81 MG PO DAILY for 30 Days, #30 TAB 9 Refills Prov:TANK HILL 03/06/18 Follow-up Plan FOLLOW UP WITH YOUR PCP IN 1-2 WEEKS Primary Care Provider Not On Staff Doctor Time spent on discharge: > 30 minutes DELORES KIRKLAND November 29, 2018 17:43
== END 2018-11-29 16:40 | disposition home or self-care (01) ==
LOC: E/R 17:11 → MS1 20:29
PROVIDERS: ADMIT Internal Medicine; ATTEND Internal Medicine
DX: E11.65 Type 2 diabetes mellitus with hyperglycemia (principal); Z79.4 Long term (current) use of insulin; S91.205A Unspecified open wound of left lesser toe(s) with damage to nail, initial encounter; I25.10 Atherosclerotic heart disease of native coronary artery without angina pectoris; Z95.5 Presence of coronary angioplasty implant and graft; E11.42 Type 2 diabetes mellitus with diabetic polyneuropathy; I10 Essential (primary) hypertension; F39 Unspecified mood [affective] disorder; L29.9 Pruritus, unspecified; Z86.73 Personal history of transient ischemic attack (TIA), and cerebral infarction without residual deficits; Z83.3 Family history of diabetes mellitus; W23.0XXA Caught, crushed, jammed, or pinched between moving objects, initial encounter
CPT/HCPCS: 36415; 80048; 80053; 80061; 81001; 82962; 83036; 83735; 84100; 85025; 87070; 96372; J1200; J1815; J2270; J7030; Z7500; Z7502; Z7610; G0378

== ENCOUNTER 2019-01-11 09:18 | Inpatient (IN) | payer OTHER ==
[~2019-01-11] VITALS: Ht 167.6 cm; Wt 82.3 kg
[~2019-01-11 09:18] MED LIST changes: +ADV10050 INHALATION; +AMLO-147 PO; -ARIP10TA12 PO; -BEN50 PO; +CLOP75TA19 PO; -CLOP75TA28 PO; +DIPH50CA30 PO; +INSU500I SQ; -LINA5TAB PO; +LORA10TA3 PO; -METF500T24 PO; +MUPI22OI2 TOP; +NITR0.4T32 SL; -NITR0.4T39 SL; -NORT50CA PO; -PANT20TA2 PO; -RANO500T2 PO; -SS SC
[2019-01-11] MEDS ORDERED: SOD CHLORIDE 0.9% 1,000 ML IV STA (10:35)
[2019-01-11] MEDS ORDERED: DIPHENHYDRAMINE 50 MG CAP PO ONE (12:00)
[2019-01-11] MEDS ORDERED: HYDROCODONE/APAP (10/325) TAB PO ONE (12:00)
--- NOTE | 2019-01-11 12:42 | ERD ---
ER Documentation Chief Complaint Chief Complaint c/o dizziness , lt side numbness x 3 days , accucheck 466 , 'Hi' @ home HPI This is a 53-year-old female with a history of chronic pain syndrome currently taking home narcotic medications. The patient is also diabetic. Her blood sugars been significantly elevated at home reading critically high despite compliance with medication regimen. Patient is also describing whole body left- sided numbness and tingling with ataxic gait and occasional slurred speech over the past 24 to 48 hours. ROS All systems reviewed and are negative except as per history of present illness. Medications Home Meds Active Scripts Mupirocin* (Bactroban*) 2% -22 Gram Oint...g., 1 APPLIC TOP DAILY, #1 TUB Prov:DELORES KIRKLAND 11/29/18 Reported Medications Salmeterol Xinaf-Fluticasone* (Advair*) 100/50 Diskus Inhaler, 1 INH INHALATION BID, #1 INHALER 11/27/18 Atorvastatin* (Atorvastatin*) 80 Mg Tablet, 80 MG PO QHS, #30 TAB 11/27/18 Losartan Potassium* (Losartan Potassium*) 50 Mg Tablet, 50 MG PO DAILY, TAB 11/27/18 Docusate Sodium* (Colace*) 100 Mg Capsule, 100 MG PO DAILY, #30 CAP 11/27/18 Gabapentin* (Gabapentin*) 300 Mg Capsule, 300 MG PO TID, #90 CAP 11/27/18 Metoprolol Succinate* (Toprol XL*) 25 Mg Tab.sr.24h, 25 MG PO DAILY, #30 TAB 11/27/18 Insulin Regular, Human (Humulin R U-500 [place]) 500 Unit/1 Ml Insuln.pen, 25 UNIT SQ TID 11/27/18 Insulin Glargine* (Lantus*) 100 Unit/Ml Soln, 80 UNIT SC BID, #1 VIAL 11/27/18 Paroxetine Hcl* (Paroxetine*) 30 Mg Tablet, 30 MG PO HS, TAB 11/27/18 Clopidogrel Bisulfate* (Clopidogrel Bisulfate*) 75 Mg Tablet, 75 MG PO DAILY, #30 TAB 11/27/18 Isosorbide Mononitrate* (Isosorbide Mononitrate*) 30 Mg Tab.er.24h, 30 MG PO DAILY, TAB 11/27/18 Loratadine* (Loratadine*) 10 Mg Tablet, 10 MG PO DAILY, #30 TAB 11/27/18 Amlodipine Besylate* (Amlodipine Besylate*) 10 Mg Tablet, 10 MG PO DAILY, #30 TAB 11/27/18 Aspirin* (Aspirin* EC) 81 Mg Tablet.dr, 81 MG PO DAILY, TAB 11/27/18 Temazepam* (Temazepam*) 30 Mg Capsule, 30 MG PO HS PRN for INSOMNIA, CAP 11/27/18 Nitroglycerin* (Nitroglycerin* SL) 0.4 Mg Tab.subl, 0.4 MG SL Q5MIN PRN for CHEST PAIN, BOTTLE 11/27/18 Diphenhydramine Hcl (BANOPHEN) 50 Mg Capsule, 50 MG PO NEEDED, CAP 11/27/18 Hydrocodone/Acetaminophen (Rudy 10-325 Tablet) 1 Each Tablet, 1 EACH PO Q6H, TAB 11/27/18 Carisoprodol* (Carisoprodol*) 350 Mg Tablet, 350 MG PO DAILY PRN for MUSCLE SPASMS, TAB 11/27/18 Allergies Allergies: Coded Allergies: ampicillin (Verified Allergy, Unknown, 01/11/19) sulbactam (Verified Allergy, Unknown, 01/11/19) PMhx/Soc History of Surgery: Yes (C-sections and 2 cardiac stents 02/24) Anesthesia Reaction: No Hx Neurological Disorder: Yes (hx of stroke jun 2018, possible brain anurysm) Hx Respiratory Disorders: No Hx Cardiac Disorders: Yes (hx of DC, HTN) Hx Psychiatric Problems: No Hx Miscellaneous Medical Probl: No Hx Alcohol Use: No Hx Substance Use: No Hx Tobacco Use: No Smoking Status: Never smoker FmHx Family History: diabetes Physical Exam Vitals Vital Signs Date Temp Pulse Resp B/P (MAP) Pulse Ox O2 O2 Flow FiO2 Time Delivery Rate 01/11/19 Nasal 2 10:57 Cannula 01/11/19 98.1 81 18 129/76 98 09:23 (93) Physical Exam General: Well developed, well nourished, no acute distress Head: Normocephalic, atraumatic. Eyes: Pupils equally reactive, EOM intact ENT: Moist mucous membranes Neck: Supple, no lymphadenopathy Respiratory: Lungs clear bilaterally, no distress Cardiovascular: RRR, no murmurs, rubs, or gallops Abdominal: Soft, non-tender, non-distended, no peritoneal signs : Deferred MSK: No edema, no unilateral swelling, 5/5 strength Neurologic: Alert and oriented, moving all extremities, normal speech, no focal weakness, no cerebellar signs, steady gait, no clear ataxia Skin: No rash Psych: Normal mood Result Diagram: 01/11/19 1043 01/11/19 1043 Results 24 hrs Laboratory Tests Test 01/11/19 09:23 01/11/19 10:43 01/11/19 10:45 Bedside Glucose 466 mg/dL White Blood Count 9.0 10^3/ul Red Blood Count 4.90 10^6/ul Hemoglobin 14.6 g/dl Hematocrit 41.7 % Mean Corpuscular Volume 85.1 fl Mean Corpuscular Hemoglobin 29.8 pg Mean Corpuscular 35.0 g/dl Hemoglobin Concent Red Cell Distribution Width 12.1 % Platelet Count 339 10^3/UL Mean Platelet Volume 9.9 fl Immature Granulocytes % 0.300 % Neutrophils % 70.3 % Lymphocytes % 20.2 % Monocytes % 6.5 % Eosinophils % 2.3 % Basophils % 0.4 % Nucleated Red Blood Cells % 0.0 /100WBC Immature Granulocytes # 0.030 10^3/ul Neutrophils # 6.3 10^3/ul Lymphocytes # 1.8 10^3/ul Monocytes # 0.6 10^3/ul Eosinophils # 0.2 10^3/ul Basophils # 0.0 10^3/ul Nucleated Red Blood Cells # 0.0 10^3/ul Urine Color YELLOW Urine Clarity SLIGHTLY CLOUDY Urine pH 5.0 Urine Specific [place] 1.032 Urine Ketones NEGATIVE mg/dL Urine Nitrite NEGATIVE mg/dL Urine Bilirubin NEGATIVE mg/dL Urine Urobilinogen NEGATIVE mg/dL Urine Leukocyte Esterase NEGATIVE Gene/ul Urine Microscopic RBC 3 /HPF Urine Microscopic WBC 2 /HPF Urine Squamous MODERATE /HPF Epithelial Cells Urine Bacteria FEW /HPF Urine Hemoglobin NEGATIVE mg/dL Urine Glucose 3+ mg/dL Urine Total Protein 1+ mg/dl Blood Gas Specimen Source Blood venous Arterial Blood Date Drawn 01/11/2019 10:48:09 AM Arterial Blood Gas VENOUS LINE Puncture Site Toni Test N/A Venous Blood pH 7.353 Venous Blood pCO2 37.1 mmHG (Temp Corrected) Venous Blood pO2 20.1 mmHG (Temp Corrected) Venous Blood HCO3 20.2 mmol/L Venous Blood Oxygen Saturation 32.3 mmHG Venous Blood Base Excess -4.7 mmol/L Venous Blood Total Hemoglobin 15.7 g/dl Venous Blood Oxyhemoglobin 32.0 % Venous Blood Methemoglobin 0.4 % Carboxyhemoglobin 0.6 % Blood Gas Temperature 37.0 C Blood Gas Modality ROOM AIR FiO2 21.0 % Blood Gas Notified Whom M.D. Blood Gas Notified Time 01/11/2019 10:55:08 AM Sodium Level 136 mmol/L Potassium Level 4.2 mmol/L Chloride Level 101 mmol/L Carbon Dioxide Level 22 mmol/L Anion Gap 13 Blood Urea Nitrogen 7 mg/dl Creatinine 0.81 mg/dl Est Glomerular Filtrat > 60 mL/min Rate mL/min Glucose Level 480 mg/dl Calcium Level 9.3 mg/dl Phosphorus Level 3.9 mg/dl Magnesium Level 1.7 mg/dl Hemoglobin A1c 12.0 % Current Medications Medications Dose Sig/Victoria Start Time Status Last (Trade) Ordered Route PRN Stop Time Admin Dose Reason Admin Sodium 1,000 ml @ Q1H STAT 01/11/19 DC 01/11/19 Chloride 1,000 mls/hr IV 10:35 01/11/19 11:15 11:34 1 tab ONCE ONCE 01/11/19 DC 01/11/19 Acetaminophen PO 12:00 01/11/19 11:59 / 12:01 Hydrocodone Bitart (Rudy (10/325)) 50 mg ONCE ONCE 01/11/19 DC 01/11/19 Diphenhydrami PO 12:00 01/11/19 11:59 ne HCl 12:01 (Benadryl) Procedures/MDM EKG, MONITORS, & DIAGNOSTIC IMAGING: EKG: I reviewed and interpreted a 12-lead EKG. Rhythm: Normal sinus rhythm ST Changes: No contiguous ST segment elevations T waves: No contiguous T wave inversions Impression: [No evidence of acute cardiac ischemia] Chest x-ray: I reviewed and interpreted a 1 view of the chest Mediastinum: No enlargement Cardiac silhouette: No cardiomegaly Airspace: Clear lung kinney bilaterally without evidence of pneumothorax Bones: No evidence of fracture CT brain: No acute process per radiologist read LAB INTERPRETATION: I reviewed the laboratory testing and it shows hyperglycemia without evidence of diabetic ketoacidosis MEDICAL DECISION MAKING: The patient's presentation is consistent with hyperglycemia needs to be ruled out for DKA. The patient has chronic pain issues and is requesting pain medication. However the patient is also describing unilateral paresthesia and occasional difficulty speaking and ataxia. For this reason I believe inpatient hospitalization for TIA work-up would be appropriate. The patient has a nonfocal exam. She is not a candidate for TPA or interventional procedure given duration of symptoms and no acute findings currently. ER COURSE: * The patient was given an aspirin after negative CT brain, oral pain medications. * The patient's pain is improving. The patient has a nonfocal deficit. Patient was given authorization to be admitted to our facility. * Patient will be admitted for MRI imaging and neuro consultation * Humalog given CONSULTATION: [None] DISPOSITION PLAN: Accepting care team and consultations: I discussed the current laboratory data, diagnostic imaging and emergency care provided. Admitting team: Panel team Admitting team indication: Insurance directed Departure Diagnosis: Primary Impression: Hyperglycemia Additional Impressions: TIA (transient ischemic attack) Chronic pain Chronic pain type: other chronic pain Qualified Codes: G89.29 - Other chronic pain Condition: Stable ADALGISA COELLO MD Jan 11, 2019 12:42
[2019-01-11] MEDS ORDERED: GLUCAGON 1 MG INJ IM PRN (13:00)
[2019-01-11] MEDS ORDERED: DEXTROSE 50% 50 ML SYRINGE IV PRN ×2 (13:00)
[2019-01-11] MEDS ORDERED: ASPIRIN 81 MG TAB PO ONE (13:00)
[2019-01-11] MEDS ORDERED: ACCU-CHEK XX ONE (13:00)
[2019-01-11] MEDS ORDERED: GLUCOSE GEL 15 GRAM TUBE BUCCAL PRN (13:00)
[2019-01-11] MEDS ORDERED: INSULIN LISPRO 100 UNIT/ML VIAL SC ONE (13:00)
[2019-01-11] MEDS ORDERED: GLUCOSE GEL 15 GRAM TUBE PO PRN ×2 (13:00)
[2019-01-11] MEDS ORDERED: ONDANSETRON 4 MG INJ IV PRN ×2 (13:30→15:30)
[2019-01-11] MEDS ORDERED: ACETAMINOPHEN 325 MG TAB PO PRN ×2 (13:30→15:30)
--- NOTE | 2019-01-11 15:06 | HP ---
Date/Time of Note Date/Time of Note DATE: 01/11/19 TIME: 14:59 Assessment/Plan VTE Prophylaxis SCD applied (from Nsg): Yes Pharmacological prophylaxis: NA/contraindicated Pharm contraindication: low risk/ambulating Lines/Catheters IV Catheter Type (from Nrsg): Saline Lock Assessment/Plan Hospital Course 1. Left-sided weakness and paresthesias likely secondary to hyperglycemia Patient reports having chronic left lower extremity neuropathy but states that the anesthesia is in her left arm and face are new, patient also reported left facial droop which has resolved CT brain with no acute findings MRI brain Neurology consultation PT/OT 2. Diabetes-uncontrolled Patient does report compliance with her diabetic regimen Increase insulin regimen while in-house life skills educator Patient does follow-up with home administrator as an outpatient A1c at this time is 12, was beyond detection during last hospitalization 3. Hypertension Resume home meds 4. Mood disorder Continue home SSRI 5. History of coronary disease Continue home meds Prophylaxis: SCDs Result Diagram: 01/11/19 1043 01/11/19 1043 Results 24hrs Laboratory Tests Test 01/11/19 09:23 01/11/19 10:43 01/11/19 10:45 01/11/19 13:15 Bedside Glucose 466 *H 309 H White Blood Count 9.0 Red Blood Count 4.90 # Hemoglobin 14.6 Hematocrit 41.7 Mean Corpuscular 85.1 Volume Mean Corpuscular 29.8 Hemoglobin Mean Corpuscular 35.0 Hemoglobin Concent Red Cell 12.1 Distribution Width Platelet Count 339 # Mean Platelet 9.9 Volume Immature 0.300 Granulocytes % Neutrophils % 70.3 Lymphocytes % 20.2 Monocytes % 6.5 Eosinophils % 2.3 Basophils % 0.4 Nucleated Red 0.0 Blood Cells % Immature 0.030 Granulocytes # Neutrophils # 6.3 Lymphocytes # 1.8 Monocytes # 0.6 Eosinophils # 0.2 Basophils # 0.0 Nucleated Red 0.0 Blood Cells # Urine Color YELLOW Urine Clarity SLIGHTLY CLOUDY A Urine pH 5.0 Urine Specific 1.032 H [place] Urine Ketones NEGATIVE Urine Nitrite NEGATIVE Urine Bilirubin NEGATIVE Urine Urobilinogen NEGATIVE Urine Leukocyte NEGATIVE Esterase Urine Microscopic 3 RBC Urine Microscopic 2 WBC Urine Squamous MODERATE Epithelial Cells Urine Bacteria FEW A Urine Hemoglobin NEGATIVE Urine Glucose 3+ H Urine Total 1+ H Protein Blood Gas Specimen Blood venous Source Arterial Blood 01/11/2019 10:48:09 Date Drawn AM Arterial Blood Gas VENOUS LINE Puncture Site Toni Test N/A Venous Blood pH 7.353 Venous Blood pCO2 37.1 (Temp Corrected) Venous Blood pO2 20.1 L (Temp Corrected) Venous Blood HCO3 20.2 L Venous Blood 32.3 L Oxygen Saturation Venous Blood Base -4.7 Excess Venous Blood Total 15.7 Hemoglobin Venous Blood 32.0 Oxyhemoglobin Venous Blood 0.4 Methemoglobin Carboxyhemoglobin 0.6 Blood Gas 37.0 Temperature Blood Gas Modality ROOM AIR FiO2 21.0 Blood Gas Notified Macarena Whom Blood Gas Notified 01/11/2019 10:55:08 Time AM Sodium Level 136 Potassium Level 4.2 Chloride Level 101 Carbon Dioxide 22 Level Anion Gap 13 Blood Urea 7 Nitrogen Creatinine 0.81 Est Glomerular > 60 Filtrat Rate mL/min Glucose Level 480 *H Calcium Level 9.3 Phosphorus Level 3.9 Magnesium Level 1.7 Hemoglobin A1c 12.0 H Test 01/11/19 13:33 Bedside Glucose 298 H HPI/ROS Admit Date/Time Admit Date/Time January 11, 2019 Hx of Present Illness Patient is a 53-year-old female with a history of diabetes, hypertension, history of [place] and mood disorder. Patient was hospitalized 2 months ago for hyperglycemia, patient does report compliance with her diabetic regimen and does have an home administrator but at that time her sugars were out of control and A1c was undetectable. Patient was seen by nurse informatics educator and was to follow-up with her home administrator. Patient presents now with 3 days of worsening neuropathic symptoms with numbness and tingling in the left arm and face as well as left lower extremity. Patient was told by her daughter that her left face was drooping but that has since resolved. Patient also reported difficulty with ambulation with deviation towards her left side as she ambulated. Patient states that she checked her sugars at home and they were out of control, patient gave herself more insulin and even fasted with no improvement in her blood sugar. In the ER blood sugar was elevated at 480 on arrival and was given insulin. CT head was negative, labs and vitals were stable. ROS Constitutional: no complaints, improved Eyes: no complaints ENT: no complaints Respiratory: no complaints Cardiovascular: no complaints Gastrointestinal: no complaints Genitourinary: no complaints Musculoskeletal: no complaints Skin: no complaints Neurologic: dizziness, focal-weakness Endocrine: no complaints Lymphatic: no complaints Psychological: no complaints, nl mood/affect Immunologic: no complaints PMH/Family/Social Past Medical History As per HPI Medications Current Medications Miscellaneous Information 1 ea NOTE XX ; Start 01/11/19 at 13:00 Glucose (Glutose) 15 gm Q15M PRN PO DECREASED GLUCOSE; Start 01/11/19 at 13:00 Glucose (Glutose) 22.5 gm Q15M PRN PO DECREASED GLUCOSE; Start 01/11/19 at 13:00 Dextrose (D50w Syringe) 25 ml Q15M PRN IV DECREASED GLUCOSE; Start 01/11/19 at 13:00 Dextrose (D50w Syringe) 50 ml Q15M PRN IV DECREASED GLUCOSE; Start 01/11/19 at 13:00 Glucagon (Glucagen) 1 mg Q15M PRN IM DECREASED GLUCOSE; Start 01/11/19 at 13:00 Glucose (Glutose) 15 gm Q15M PRN BUCCAL DECREASED GLUCOSE; Start 01/11/19 at 13:00 Ondansetron HCl (Zofran Inj) 4 mg ER BRIDGE PRN IV NAUSEA/VOMITING; Start 01/11/19 at 13:30; Stop 01/12/19 at 13:29 Acetaminophen (Tylenol Tab) 650 mg ER BRIDGE PRN PO .MILD PAIN 1-3 OR TEMP; Start 01/11/19 at 13:30; Stop 01/12/19 at 13:29 Coded Allergies: ampicillin (Verified Allergy, Unknown, 01/11/19) sulbactam (Verified Allergy, Unknown, 01/11/19) Past Surgical History Past Surgical Hx: other Family History Significant Family History: heart disease, diabetes, renal disease Social History Alcohol Use: none Smoking Status: Never smoker Drug Use: none Exam/Review of Systems Vital Signs Vitals Vital Signs Date Temp Pulse Resp B/P (MAP) Pulse Ox O2 O2 Flow FiO2 Time Delivery Rate 01/11/19 82 17 131/77 100 Room Air 14:01 (95) 01/11/19 2 10:57 01/11/19 98.1 09:23 Exam Constitutional: alert, oriented Respiratory: clear to auscultation Cardiovascular: regular rate and rhythm Gastrointestinal: soft; No distended Musculoskeletal: nl extremities to inspection DELORES KIRKLAND Jan 11, 2019 15:06
[2019-01-11] MEDS ORDERED: NITROGLYCERIN (SL) 0.4 MG TAB SL PRN (15:30)
[2019-01-11] MEDS ORDERED: HYDROCODONE/APAP (5/325) TAB PO PRN (15:30)
[2019-01-11] MEDS ORDERED: NON-FORMULARY/PATIENT OWN MED (Temazepam* 30 MG) PO PRN (15:30)
[2019-01-11] MEDS ORDERED: NACL 0.9% 3 ML SYG IV SCH (15:30)
[2019-01-11] MEDS ORDERED: DIPHENHYDRAMINE 50 MG CAP PO PRN (15:30)
[2019-01-11] MEDS ORDERED: ZOLPIDEM 5 MG TAB PO PRN (15:30)
[2019-01-11] MEDS ORDERED: CARISOPRODOL 350 MG TAB PO PRN (15:30)
[2019-01-11] MEDS ORDERED: DOCUSATE SODIUM 100 MG CAP PO PRN (15:30)
[2019-01-11] MEDS: morphine 2 MG INJ IV PRN ×2 (17:33→21:38)
[2019-01-11] MEDS: SOD CHLORIDE 0.9% 1,000 ML IV SCH (17:34)
[2019-01-11] MEDS: INSULIN ASPART [NOVOLOG] 3 ML PEN SC SCH ×3 (18:06→21:26)
--- NOTE | 2019-01-11 18:21 | CONSI ---
Assessment/Plan Assessment/Plan Assessment/Plan (Recall) 53 F c/ DM 2 and other comorbidities, who presents for evaluation of hyperglycemia. She additionally notes L sided weakness and numbness x 3 days, for which neurology is consulted. The clinical picture could be consistent w/ acute stroke. Symptomatic hyperglycemia is a Dx of exclusion.. Head CT is unremarkable.. CUS is notable for moderate L ICA stenosis (asymptomatic in this clinical context) P: Await MRI brain for further characterization Agree w/ asa/lipitor daily for now Add UDS, Lipid panel, ESR, RPR.. BP, glucose and other medical management per primary PT/OT/ST as necessary Will follow clinically Consultation Date/Type/Reason Admit Date/Time January 11, 2019 Type of Consult Neurology Reason for Consultation weakness Requesting Provider: DELORES KIRKLAND Date/Time of Note DATE: 01/11/19 TIME: 18:16 Hx of Present Illness Patient is a 53-year-old female with a history of diabetes, hypertension, history of OH and mood disorder. Patient was hospitalized 2 months ago for hyperglycemia, patient does report compliance with her diabetic regimen and does have an musculoskeletal physiotherapist but at that time her sugars were out of control and A1c was undetectable. Patient was seen by software educator and was to follow-up with her musculoskeletal physiotherapist. Patient presents now with 3 days of worsening neuropathic symptoms with numbness and tingling in the left arm and face as well as left lower extremity. Patient was told by her daughter that her left face was drooping but that has since resolved. Patient also reported difficulty with ambulation with deviation towards her left side as she ambulated. Patient states that she checked her sugars at home and they were out of control, patient gave herself more insulin and even fasted with no improvement in her blood sugar. In the ER blood sugar was elevated at 480 on arrival and was given insulin. CT head was negative, labs and vitals were stable. per HPI Objective Exam Vitals Vital Signs Date Temp Pulse Resp B/P (MAP) Pulse Ox O2 O2 Flow FiO2 Time Delivery Rate 01/11/19 98.5 74 17 139/84 99 Room Air 17:46 (102) 01/11/19 2 10:57 Exam PE: Gen Appearance: No Apparent Distress HEENT: Normocephalic Cardiovascular: Regular rate Abdomen: Soft Extremities: Dry NE: The patient was alert and oriented. Language was normal. Fund of knowledge was normal. Pupils were equal and reactive to light. There was no afferent pupillary defect. Visual kinney were normal. Funduscopic examination was limited. Extra-ocular movements were full. Ptosis was absent. There was no nystagmus. Facial sensation was normal. Face was symmetric with normal strength. Hearing was intact. Palate movements were normal. Neck strength was normal. There was normal tongue bulk and speed of movement. Tone was normal. Muscle bulk was normal. I did not see fasciculations. Arms and legs were symmetric. Vibration sensation was decreased distally. Temperature and pinprick sensation was normal. Rapid alternating movements were normal. There was no dysmetria. There was no intention tremor. Gait was deferred due to bedrest. Arm and leg reflexes were symmetric. Arcos's sign was absent. Plantar responses were flexor. Results Result Diagram: 01/11/19 1043 01/11/19 1043 Results 24hrs Laboratory Tests Test 01/11/19 09:23 01/11/19 10:43 01/11/19 10:45 01/11/19 13:15 Bedside Glucose 466 *H 309 H White Blood Count 9.0 Red Blood Count 4.90 # Hemoglobin 14.6 Hematocrit 41.7 Mean Corpuscular 85.1 Volume Mean Corpuscular 29.8 Hemoglobin Mean Corpuscular 35.0 Hemoglobin Concent Red Cell 12.1 Distribution Width Platelet Count 339 # Mean Platelet 9.9 Volume Immature 0.300 Granulocytes % Neutrophils % 70.3 Lymphocytes % 20.2 Monocytes % 6.5 Eosinophils % 2.3 Basophils % 0.4 Nucleated Red 0.0 Blood Cells % Immature 0.030 Granulocytes # Neutrophils # 6.3 Lymphocytes # 1.8 Monocytes # 0.6 Eosinophils # 0.2 Basophils # 0.0 Nucleated Red 0.0 Blood Cells # Urine Color YELLOW Urine Clarity SLIGHTLY CLOUDY A Urine pH 5.0 Urine Specific 1.032 H Dalton Urine Ketones NEGATIVE Urine Nitrite NEGATIVE Urine Bilirubin NEGATIVE Urine Urobilinogen NEGATIVE Urine Leukocyte NEGATIVE Esterase Urine Microscopic 3 RBC Urine Microscopic 2 WBC Urine Squamous MODERATE Epithelial Cells Urine Bacteria FEW A Urine Hemoglobin NEGATIVE Urine Glucose 3+ H Urine Total 1+ H Protein Blood Gas Specimen Blood venous Source Arterial Blood 01/11/2019 10:48:09 Date Drawn AM Arterial Blood Gas VENOUS LINE Puncture Site Toni Test N/A Venous Blood pH 7.353 Venous Blood pCO2 37.1 (Temp Corrected) Venous Blood pO2 20.1 L (Temp Corrected) Venous Blood HCO3 20.2 L Venous Blood 32.3 L Oxygen Saturation Venous Blood Base -4.7 Excess Venous Blood Total 15.7 Hemoglobin Venous Blood 32.0 Oxyhemoglobin Venous Blood 0.4 Methemoglobin Carboxyhemoglobin 0.6 Blood Gas 37.0 Temperature Blood Gas Modality ROOM AIR FiO2 21.0 Blood Gas Notified M.D. Whom Blood Gas Notified 01/11/2019 10:55:08 Time AM Sodium Level 136 Potassium Level 4.2 Chloride Level 101 Carbon Dioxide 22 Level Anion Gap 13 Blood Urea 7 Nitrogen Creatinine 0.81 Est Glomerular > 60 Filtrat Rate mL/min Glucose Level 480 *H Calcium Level 9.3 Phosphorus Level 3.9 Magnesium Level 1.7 Hemoglobin A1c 12.0 H Test 01/11/19 13:33 01/11/19 17:56 Bedside Glucose 298 H 175 Past Medical History reviewed Home Meds Active Scripts Mupirocin* (Bactroban*) 2% -22 Gram Oint...g., 1 APPLIC TOP DAILY, #1 TUB Prov:MARITADELORES GARCIA 11/29/18 Reported Medications Salmeterol Xinaf-Fluticasone* (Advair*) 100/50 Diskus Inhaler, 1 INH INHALATION BID, #1 INHALER 11/27/18 Atorvastatin* (Atorvastatin*) 80 Mg Tablet, 80 MG PO QHS, #30 TAB 11/27/18 Losartan Potassium* (Losartan Potassium*) 50 Mg Tablet, 50 MG PO DAILY, TAB 11/27/18 Docusate Sodium* (Colace*) 100 Mg Capsule, 100 MG PO DAILY, #30 CAP 11/27/18 Gabapentin* (Gabapentin*) 300 Mg Capsule, 300 MG PO TID, #90 CAP 11/27/18 Metoprolol Succinate* (Toprol XL*) 25 Mg Tab.sr.24h, 25 MG PO DAILY, #30 TAB 11/27/18 Insulin Regular, Human (Humulin R U-500 Kwikpen) 500 Unit/1 Ml Insuln.pen, 25 UNIT SQ TID 11/27/18 Insulin Glargine* (Lantus*) 100 Unit/Ml Soln, 80 UNIT SC BID, #1 VIAL 11/27/18 Paroxetine Hcl* (Paroxetine*) 30 Mg Tablet, 30 MG PO HS, TAB 11/27/18 Clopidogrel Bisulfate* (Clopidogrel Bisulfate*) 75 Mg Tablet, 75 MG PO DAILY, #30 TAB 11/27/18 Isosorbide Mononitrate* (Isosorbide Mononitrate*) 30 Mg Tab.er.24h, 30 MG PO DAILY, TAB 11/27/18 Loratadine* (Loratadine*) 10 Mg Tablet, 10 MG PO DAILY, #30 TAB 11/27/18 Amlodipine Besylate* (Amlodipine Besylate*) 10 Mg Tablet, 10 MG PO DAILY, #30 TAB 11/27/18 Aspirin* (Aspirin* EC) 81 Mg Tablet.dr, 81 MG PO DAILY, TAB 11/27/18 Temazepam* (Temazepam*) 30 Mg Capsule, 30 MG PO HS PRN for INSOMNIA, CAP 11/27/18 Nitroglycerin* (Nitroglycerin* SL) 0.4 Mg Tab.subl, 0.4 MG SL Q5MIN PRN for CHEST PAIN, BOTTLE 11/27/18 Diphenhydramine Hcl (BANOPHEN) 50 Mg Capsule, 50 MG PO NEEDED, CAP 11/27/18 Hydrocodone/Acetaminophen ([place] 10-325 Tablet) 1 Each Tablet, 1 EACH PO Q6H, TAB 11/27/18 Carisoprodol* (Carisoprodol*) 350 Mg Tablet, 350 MG PO DAILY PRN for MUSCLE SPAS MS, TAB 11/27/18 Medications Current Medications Miscellaneous Information 1 ea NOTE XX ; Start 01/11/19 at 13:00 Glucose (Glutose) 15 gm Q15M PRN PO DECREASED GLUCOSE; Start 01/11/19 at 13:00 Glucose (Glutose) 22.5 gm Q15M PRN PO DECREASED GLUCOSE; Start 01/11/19 at 13:00 Dextrose (D50w Syringe) 25 ml Q15M PRN IV DECREASED GLUCOSE; Start 01/11/19 at 13:00 Dextrose (D50w Syringe) 50 ml Q15M PRN IV DECREASED GLUCOSE; Start 01/11/19 at 13:00 Glucagon (Glucagen) 1 mg Q15M PRN IM DECREASED GLUCOSE; Start 01/11/19 at 13:00 Glucose (Glutose) 15 gm Q15M PRN BUCCAL DECREASED GLUCOSE; Start 01/11/19 at 13:00 Ondansetron HCl (Zofran Inj) 4 mg ER BRIDGE PRN IV NAUSEA/VOMITING; Start 01/11/19 at 13:30; Stop 01/12/19 at 13:29 Acetaminophen (Tylenol Tab) 650 mg ER BRIDGE PRN PO .MILD PAIN 1-3 OR TEMP; Start 01/11/19 at 13:30; Stop 01/12/19 at 13:29 Sodium Chloride 1,000 ml @ 100 mls/hr Q10H IV Last administered on 01/11/19at 17:34; Admin Dose 100 MLS/HR; Start 01/11/19 at 15:05 IV Flush (NS 3 ml) 3 ml PER PROTOCOL IV ; Start 01/11/19 at 15:30 Ondansetron HCl (Zofran Inj) 4 mg Q6H PRN IV NAUSEA/VOMITING Last administered on 01/11/19at 17:33; Admin Dose 4 MG; Start 01/11/19 at 15:30 Acetaminophen (Tylenol Tab) 650 mg Q6H PRN PO .PAIN 1-3 OR TEMP; Start 01/11/19 at 15:30 Acetaminophen/ Hydrocodone Bitart ([place] (5/325)) 1 tab Q6H PRN PO .MOD PAIN 4- 6; Start 01/11/19 at 15:30 Morphine Sulfate (morphine) 2 mg Q4H PRN IV .SEVERE PAIN 7-10 Last administered on 01/11/19at 17:33; Admin Dose 2 MG; Start 01/11/19 at 15:30 Docusate Sodium (Colace) 100 mg Q12H PRN PO .CONSTIPATION; Start 01/11/19 at 15:30 Zolpidem Tartrate (Ambien) 5 mg QHS PRN PO .INSOMNIA; Start 01/11/19 at 15:30 Diagnostic Test (Pha) (Accu-Chek) 1 ea 02 XX ; Start 01/12/19 at 02:00 Insulin Aspart (Novolog Insulin Pen) NOVOLOG *MILD* ALGORITHM WITH MEALS BEDTIME SC Last administered on 01/11/19at 18:06; Admin Dose 1 UNIT; Start 01/11/19 at 18:00 Amlodipine Besylate (Norvasc) 10 mg DAILY PO ; Start 01/12/19 at 09:00 Aspirin (Halfprin) 81 mg DAILY PO ; Start 01/12/19 at 09:00 Atorvastatin Calcium (Lipitor) 80 mg QHS PO ; Start 01/11/19 at 21:00 Carisoprodol (Soma) 350 mg DAILY PRN PO MUSCLE SPASMS; Start 01/11/19 at 15:30 Clopidogrel Bisulfate (plaVIX) 75 mg DAILY PO ; Start 01/12/19 at 09:00 Diphenhydramine HCl (Benadryl) 50 mg Q8 PRN PO PRURITUS; Start 01/11/19 at 15:30 Docusate Sodium (Colace) 100 mg DAILY PO ; Start 01/12/19 at 09:00 Gabapentin (Neurontin) 300 mg TID PO ; Start 01/11/19 at 21:00 Insulin Glargine (Lantus) 80 units BID SC ; Start 01/11/19 at 21:00 Isosorbide Mononitrate (Imdur) 30 mg DAILY PO ; Start 01/12/19 at 09:00 Loratadine (Claritin) 10 mg DAILY PO ; Start 01/12/19 at 09:00 Losartan Potassium (Cozaar) 50 mg DAILY PO ; Start 01/12/19 at 09:00 Metoprolol Succinate (Toprol Xl) 25 mg DAILY PO ; Start 01/12/19 at 09:00 Nitroglycerin (Nitroglycerin (Sl Tab) 0.4 Mg) 1 tab [id number] PRN SL CHEST PAIN; Start 01/11/19 at 15:30 Paroxetine HCl (Paxil) 30 mg HS PO ; Start 01/11/19 at 21:00 Miscellaneous Information 25 unit TID SQ ; Start 01/11/19 at 21:00; Status UNV Miscellaneous Information 1 inh BID INHALATION ; Start 01/11/19 at 21:00; Status UNV Allergies: Coded Allergies: ampicillin (Verified Allergy, Unknown, 01/11/19) sulbactam (Verified Allergy, Unknown, 01/11/19) Past Surgical History Past Surgical Hx: other Social History Alcohol Use: none Smoking Status: Never smoker Drug Use: none ANU MONZON Jan 11, 2019 18:21
[2019-01-11 18:53] VITALS: Ht 167.6 cm; Wt 82.3 kg
[2019-01-11 18:57] VITALS: BP 136/81; PULSE 78; RESP 19
[2019-01-11 19:49] VITALS: PULSE 79
[2019-01-11 20:00] VITALS: BP 132/80; PULSE 78; RESP 20
[2019-01-11] MEDS: PAROXETINE 10 MG TAB PO SCH (21:14)
[2019-01-11] MEDS: ATORVASTATIN 80 MG TAB PO SCH (21:14)
[2019-01-11] MEDS: GABAPENTIN 300 MG CAP PO SCH (21:14)
[2019-01-11] MEDS: INSULIN GLARGINE [LANTus] (100 UNITS/ML) SYG SC SCH (21:27)
[2019-01-12] VITALS: BP 114/59; PULSE 84; RESP 18
[2019-01-12] MEDS: SOD CHLORIDE 0.9% 1,000 ML IV SCH ×3 (01:04→21:57)
[2019-01-12] MEDS: ACCU-CHEK XX SCH (01:05)
[2019-01-12 04:00] VITALS: BP 126/75; PULSE 79; RESP 20
[2019-01-12] MEDS: morphine 2 MG INJ IV PRN ×5 (04:16→21:43)
[2019-01-12 07:20] VITALS: BP 133/83; PULSE 75; RESP 16
[2019-01-12] MEDS: INSULIN ASPART [NOVOLOG] 3 ML PEN SC SCH ×7 (07:55→21:00)
[2019-01-12] MEDS: FLUTICASONE/VILANTEROL 100-25 INH SCH (09:00)
[2019-01-12] MEDS: INSULIN GLARGINE [LANTus] (100 UNITS/ML) SYG SC SCH (09:00)
[2019-01-12] MEDS: GABAPENTIN 300 MG CAP PO SCH ×3 (09:29→20:10)
[2019-01-12] MEDS: DOCUSATE SODIUM 100 MG CAP PO SCH (09:29)
[2019-01-12] MEDS: METOPROLOL (XL) 25 MG TAB PO SCH (09:29)
[2019-01-12] MEDS: ISOSORBIDE MONONITRATE(SR)30 MG TAB PO SCH (09:29)
[2019-01-12] MEDS: LOSARTAN 50 MG TAB PO SCH (09:29)
[2019-01-12] MEDS: LORATADINE 10 MG TAB PO SCH (09:30)
[2019-01-12] MEDS: ASPIRIN (EC) 81 MG TAB PO SCH (09:30)
[2019-01-12] MEDS: AMLODIPINE 10 MG TAB PO SCH (09:30)
[2019-01-12] MEDS: CLOPIDOGREL 75 MG TAB PO SCH (09:30)
[2019-01-12 11:21] VITALS: BP 134/72; PULSE 69; RESP 17
[2019-01-12] MEDS ORDERED: MAGNESIUM SULFATE 4 GM/100 ML 100 ML IVPB ONE (15:00)
[2019-01-12 15:30] VITALS: BP 116/64; PULSE 66; RESP 16
[2019-01-12] MEDS: DIPHENHYDRAMINE 50 MG INJ IV PRN ×2 (15:58→23:01)
--- NOTE | 2019-01-12 19:03 | PN ---
Date/Time of Note Date/Time of Note DATE: 01/12/19 TIME: 18:59 Assessment/Plan VTE Prophylaxis Risk score (from Nsg)>0 risk: 1 SCD applied (from Ns): Yes Pharmacological prophylaxis: NA/contraindicated Pharm contraindication: low risk/ambulating Lines/Catheters IV Catheter Type (from Nrsg): Peripheral IV Assessment/Plan Hospital Course 1. Left-sided weakness and paresthesias likely secondary to hyperglycemia Patient reports having chronic left lower extremity neuropathy but states that the anesthesia is in her left arm and face are new, patient also reported left facial droop which has resolved CT brain with no acute findings Follow-up on MRI brain Neurology consultation appreciated PT/OT 2. Diabetes-uncontrolled Patient does report compliance with her diabetic regimen but sugars out of control and return to normal within 1 day of receiving insulin in the hospital Location of insulin administration may be preventing appropriate diffusion due to scar tissue, patient now receiving insulin in her arm simulation educator Patient does follow-up with community center worker as an outpatient A1c at this time is 12, was beyond detection during last hospitalization 3. Hypertension Resume home meds 4. Mood disorder Continue home SSRI 5. History of coronary disease Continue home meds Prophylaxis: SCDs DC planning: Anticipate DC home tomorrow Result Diagram: 01/12/1918 01/12/1918 Results 24hrs Laboratory Tests Test 01/11/19 20:52 01/12/19 00:57 01/12/19 06:18 01/12/19 07:47 Bedside Glucose 181 98 91 White Blood Count 8.4 Red Blood Count 4.03 L Hemoglobin 12.0 Hematocrit 34.0 L Mean Corpuscular Volume 84.4 Mean Corpuscular 29.8 Hemoglobin Mean Corpuscular 35.3 Hemoglobin Concent Red Cell Distribution 12.3 Width Platelet Count 282 Mean Platelet Volume 10.0 Immature Granulocytes % 0.400 Neutrophils % 60.5 Lymphocytes % 27.0 Monocytes % 8.5 Eosinophils % 3.2 Basophils % 0.4 Nucleated Red Blood 0.0 Cells % Immature Granulocytes # 0.030 Neutrophils # 5.1 Lymphocytes # 2.3 Monocytes # 0.7 Eosinophils # 0.3 Basophils # 0.0 Nucleated Red Blood 0.0 Cells # Sodium Level 137 Potassium Level 3.6 Chloride Level 109 Carbon Dioxide Level 23 Anion Gap 5 # Blood Urea Nitrogen 9 Creatinine 0.58 Est Glomerular Filtrat > 60 Rate mL/min Glucose Level 136 # Calcium Level 8.3 L Phosphorus Level 4.5 Magnesium Level 1.4 L Test 01/12/19 11:38 01/12/19 17:15 Bedside Glucose 126 227 H Subjective 24 Hr Interval Summary Constitutional: no complaints Exam/Review of Systems Exam Vitals Vital Signs Date Temp Pulse Resp B/P (MAP) Pulse Ox O2 O2 Flow FiO2 Time Delivery Rate 01/12/19 98.9 66 16 116/64 96 15:30 (81) 01/11/19 Room Air 18:57 01/11/19 2 10:57 Intake and Output 01/11/19 01/11/19 01/12/19 1414:59 22:59 06:59 IntakeIntake Total 1000 ml BalanceBalance 1000 ml Constitutional: alert, oriented Respiratory: clear to auscultation Cardiovascular: regular rate and rhythm Gastrointestinal: soft; No distended Musculoskeletal: nl extremities to inspection Results Results 24hrs Laboratory Tests Test 01/11/19 20:52 01/12/19 00:57 01/12/19 06:18 01/12/19 07:47 Bedside Glucose 181 98 91 White Blood Count 8.4 Red Blood Count 4.03 L Hemoglobin 12.0 Hematocrit 34.0 L Mean Corpuscular Volume 84.4 Mean Corpuscular 29.8 Hemoglobin Mean Corpuscular 35.3 Hemoglobin Concent Red Cell Distribution 12.3 Width Platelet Count 282 Mean Platelet Volume 10.0 Immature Granulocytes % 0.400 Neutrophils % 60.5 Lymphocytes % 27.0 Monocytes % 8.5 Eosinophils % 3.2 Basophils % 0.4 Nucleated Red Blood 0.0 Cells % Immature Granulocytes # 0.030 Neutrophils # 5.1 Lymphocytes # 2.3 Monocytes # 0.7 Eosinophils # 0.3 Basophils # 0.0 Nucleated Red Blood 0.0 Cells # Sodium Level 137 Potassium Level 3.6 Chloride Level 109 Carbon Dioxide Level 23 Anion Gap 5 # Blood Urea Nitrogen 9 Creatinine 0.58 Est Glomerular Filtrat > 60 Rate mL/min Glucose Level 136 # Calcium Level 8.3 L Phosphorus Level 4.5 Magnesium Level 1.4 L Test 01/12/19 11:38 01/12/19 17:15 Bedside Glucose 126 227 H Medications Medication Current Medications Miscellaneous Information 1 ea NOTE XX ; Start 01/11/19 at 13:00 Glucose (Glutose) 15 gm Q15M PRN PO DECREASED GLUCOSE; Start 01/11/19 at 13:00 Glucose (Glutose) 22.5 gm Q15M PRN PO DECREASED GLUCOSE; Start 01/11/19 at 13:00 Dextrose (D50w Syringe) 25 ml Q15M PRN IV DECREASED GLUCOSE; Start 01/11/19 at 13:00 Dextrose (D50w Syringe) 50 ml Q15M PRN IV DECREASED GLUCOSE; Start 01/11/19 at 13:00 Glucagon (Glucagen) 1 mg Q15M PRN IM DECREASED GLUCOSE; Start 01/11/19 at 13:00 Glucose (Glutose) 15 gm Q15M PRN BUCCAL DECREASED GLUCOSE; Start 01/11/19 at 13:00 Sodium Chloride 1,000 ml @ 100 mls/hr Q10H IV Last administered on 01/12/19at 10:37; Admin Dose 100 MLS/HR; Start 01/11/19 at 15:05 IV Flush (NS 3 ml) 3 ml PER PROTOCOL IV ; Start 01/11/19 at 15:30 Ondansetron HCl (Zofran Inj) 4 mg Q6H PRN IV NAUSEA/VOMITING Last administered on 01/11/19at 17:33; Admin Dose 4 MG; Start 01/11/19 at 15:30 Acetaminophen (Tylenol Tab) 650 mg Q6H PRN PO .PAIN 1-3 OR TEMP; Start 01/11/19 at 15:30 Acetaminophen/ Hydrocodone Bitart ([place] (5/325)) 1 tab Q6H PRN PO .MOD PAIN 4- 6; Start 01/11/19 at 15:30 Morphine Sulfate (morphine) 2 mg Q4H PRN IV .SEVERE PAIN 7-10 Last administered on 01/12/19at 17:51; Admin Dose 2 MG; Start 01/11/19 at 15:30 Docusate Sodium (Colace) 100 mg Q12H PRN PO .CONSTIPATION; Start 01/11/19 at 15:30 Zolpidem Tartrate (Ambien) 5 mg QHS PRN PO .INSOMNIA Last administered on 01/11/19at 22:45; Admin Dose 5 MG; Start 01/11/19 at 15:30 Diagnostic Test (Pha) (Accu-Chek) 1 ea 02 XX ; Start 01/12/19 at 02:00 Insulin Aspart (Novolog Insulin Pen) NOVOLOG *MILD* ALGORITHM WITH MEALS BEDTIME SC Last administered on 01/12/19 17:21; Admin Dose 3 UNIT; Start 01/11/19 at 18:00 Amlodipine Besylate (Norvasc) 10 mg DAILY PO Last administered on 01/12/19 09:30; Admin Dose 10 MG; Start 01/12/19 at 09:00 Aspirin (Halfprin) 81 mg DAILY PO Last administered on 01/12/19 09:30; Admin Dose 81 MG; Start 01/12/19 at 09:00 Atorvastatin Calcium (Lipitor) 80 mg QHS PO Last administered on 01/11/19 21:14; Admin Dose 80 MG; Start 01/11/19 at 21:00 Carisoprodol (Soma) 350 mg DAILY PRN PO MUSCLE SPASMS; Start 01/11/19 at 15:30 Clopidogrel Bisulfate (plaVIX) 75 mg DAILY PO Last administered on 01/12/19 09:30; Admin Dose 75 MG; Start 01/12/19 at 09:00 Diphenhydramine HCl (Benadryl) 50 mg Q8 PRN PO PRURITUS; Start 01/11/19 at 15:30 Docusate Sodium (Colace) 100 mg DAILY PO Last administered on 01/12/19 09:29; Admin Dose 100 MG; Start 01/12/19 at 09:00 Gabapentin (Neurontin) 300 mg TID PO Last administered on 01/12/19 12:42; Admin Dose 300 MG; Start 01/11/19 at 21:00 Insulin Glargine (Lantus) 80 units BID SC Last administered on 01/11/19 21:27; Admin Dose 80 UNITS; Start 01/11/19 at 21:00 Isosorbide Mononitrate (Imdur) 30 mg DAILY PO Last administered on 01/12/19 09:29; Admin Dose 30 MG; Start 01/12/19 at 09:00 Loratadine (Claritin) 10 mg DAILY PO Last administered on 01/12/19 09:30; Admin Dose 10 MG; Start 01/12/19 at 09:00 Losartan Potassium (Cozaar) 50 mg DAILY PO Last administered on 01/12/19 09:29; Admin Dose 50 MG; Start 01/12/19 at 09:00 Metoprolol Succinate (Toprol Xl) 25 mg DAILY PO Last administered on 01/12/19at 09:29; Admin Dose 25 MG; Start 01/12/19 at 09:00 Nitroglycerin (Nitroglycerin (Sl Tab) 0.4 Mg) 1 tab [id number] PRN SL CHEST PAIN; Start 01/11/19 at 15:30 Paroxetine HCl (Paxil) 30 mg HS PO Last administered on 01/11/19at 21:14; Admin Dose 30 MG; Start 01/11/19 at 21:00 Insulin Aspart (Novolog Insulin Pen) 25 unit TID SC Last administered on 01/12/19at 12:50; Admin Dose 25 UNIT; Start 01/11/19 at 21:00 Fluticasone/ Vilanterol (Breo Ellipta 100-25 Mcg Inh) 1 inh DAILY@0900 INH ; S tart 01/12/19 at 09:00 Magnesium Sulfate 100 ml @ 25 mls/hr ONCE ONCE IVPB Last administered on 01/12at 16:03; Admin Dose 25 MLS/HR; Start 01/12/19 at 15:00; Stop 01/12/19 at 18:59 Diphenhydramine HCl (Benadryl) 50 mg Q8H PRN IV itchy Last administered on 01/12/19at 15:58; Admin Dose 50 MG; Start 01/12/19 at 15:30 DELORES KIRKLAND Jan 12, 2019 19:03
[2019-01-12 20:00] VITALS: BP 126/71; PULSE 74; RESP 18
[2019-01-12] MEDS: ATORVASTATIN 80 MG TAB PO SCH (20:10)
[2019-01-12] MEDS: PAROXETINE 10 MG TAB PO SCH (20:10)
[2019-01-12] MEDS ORDERED: INSULIN GLARGINE [LANTus] (100 UNITS/ML) SYG SC SCH (21:00)
[2019-01-13] VITALS: BP 124/71; PULSE 74; RESP 18
[2019-01-13] MEDS: morphine 2 MG INJ IV PRN ×4 (01:47→13:53)
[2019-01-13] MEDS: ACCU-CHEK XX SCH (02:36)
[2019-01-13 04:00] VITALS: BP 112/62; PULSE 73; RESP 18
[2019-01-13] MEDS: SOD CHLORIDE 0.9% 1,000 ML IV SCH (05:29)
[2019-01-13] MEDS: DIPHENHYDRAMINE 50 MG INJ IV PRN (07:19)
[2019-01-13 07:21] VITALS: BP 131/77; PULSE 69; RESP 20
--- NOTE | 2019-01-13 07:57 | CONS ---
Assessment/Plan Assessment/Plan Assessment/Plan (Recall) 53 F c/ DM 2 and other comorbidities, who presents for evaluation of hyperglycemia. She additionally notes L sided weakness and numbness x 3 days, for which neurology is consulted. The clinical picture could be consistent w/ symptomatic hyperglycemia. MRI brain is reassuringly negative for acute ischemia.. UDS + cocaine, thc P: Agree w/ asa/lipitor daily for secondary stroke prevention Certified Surgical Technologist re: drug cessation.. BP, glucose and other medical management per primary PT/OT/ST as necessary Will follow clinically Consultation Date/Type/Reason Admit Date/Time Jan 11, 2019 at 13:11 Type of Consult Neurology Reason for Consultation weakness Requesting Provider: DELORES KIRKLAND Date/Time of Note DATE: 01/13/19 TIME: 07:55 24 HR Interval Summary Free Text/Dictation s/p MRI brain Exam/Review of Systems Exam Vitals Vital Signs Date Temp Pulse Resp B/P (MAP) Pulse Ox O2 O2 Flow FiO2 Time Delivery Rate 01/13/19 97.4 69 20 131/77 96 Room Air 07:21 (95) 01/11/19 2 10:57 Intake and Output 01/12/19 01/12/19 01/13/19 1515:00 23:00 07:00 IntakeIntake Total 840 ml 450 ml 250 ml OutputOutput Total 3 ml BalanceBalance 840 ml 450 ml 247 ml Results Result Diagram: 01/12/19 0618 01/12/19 0618 Results 24hrs Laboratory Tests Test 01/12/19 11:38 01/12/19 17:15 01/12/19 21:41 01/13/19 01:50 Bedside Glucose 126 227 H 267 H 225 H Medications Medication Current Medications Miscellaneous Information 1 ea NOTE XX ; Start 01/11/19 at 13:00 Glucose (Glutose) 15 gm Q15M PRN PO DECREASED GLUCOSE; Start 01/11/19 at 13:00 Glucose (Glutose) 22.5 gm Q15M PRN PO DECREASED GLUCOSE; Start 01/11/19 at 13:00 Dextrose (D50w Syringe) 25 ml Q15M PRN IV DECREASED GLUCOSE; Start 01/11/19 at 13:00 Dextrose (D50w Syringe) 50 ml Q15M PRN IV DECREASED GLUCOSE; Start 01/11/19 at 13:00 Glucagon (Glucagen) 1 mg Q15M PRN IM DECREASED GLUCOSE; Start 01/11/19 at 13:00 Glucose (Glutose) 15 gm Q15M PRN BUCCAL DECREASED GLUCOSE; Start 01/11/19 at 13:00 Sodium Chloride 1,000 ml @ 100 mls/hr Q10H IV Last administered on 01/13/19 05:29; Admin Dose 100 MLS/HR; Start 01/11/19 at 15:05 IV Flush (NS 3 ml) 3 ml PER PROTOCOL IV ; Start 01/11/19 at 15:30 Ondansetron HCl (Zofran Inj) 4 mg Q6H PRN IV NAUSEA/VOMITING Last administered on 01/11/19 17:33; Admin Dose 4 MG; Start 01/11/19 at 15:30 Acetaminophen (Tylenol Tab) 650 mg Q6H PRN PO .PAIN 1-3 OR TEMP; Start 01/11/19 at 15:30 Acetaminophen/ Hydrocodone Bitart ([place] (5/325)) 1 tab Q6H PRN PO .MOD PAIN 4- 6; Start 01/11/19 at 15:30 Morphine Sulfate (morphine) 2 mg Q4H PRN IV .SEVERE PAIN 7-10 Last administered on 01/13/19 05:26; Admin Dose 2 MG; Start 01/11/19 at 15:30 Docusate Sodium (Colace) 100 mg Q12H PRN PO .CONSTIPATION; Start 01/11/19 at 15:30 Zolpidem Tartrate (Ambien) 5 mg QHS PRN PO .INSOMNIA Last administered on 01/11/19at 22:45; Admin Dose 5 MG; Start 01/11/19 at 15:30 Diagnostic Test (Pha) (Accu-Chek) 1 ea 02 XX Last administered on 01/13/19at 02:36; Admin Dose 1 EA; Start 01/12/19 at 02:00 Insulin Aspart (Novolog Insulin Pen) NOVOLOG *MILD* ALGORITHM WITH MEALS BEDTIME SC Last administered on 01/12/19 17:21; Admin Dose 3 UNIT; Start 01/11/19 at 18:00 Amlodipine Besylate (Norvasc) 10 mg DAILY PO Last administered on 01/12/19at 09:30; Admin Dose 10 MG; Start 01/12/19 at 09:00 Aspirin (Halfprin) 81 mg DAILY PO Last administered on 01/12/19 09:30; Admin Dose 81 MG; Start 01/12/19 at 09:00 Atorvastatin Calcium (Lipitor) 80 mg QHS PO Last administered on 01/12/19 20:10; Admin Dose 80 MG; Start 01/11/19 at 21:00 Carisoprodol (Soma) 350 mg DAILY PRN PO MUSCLE SPASMS; Start 01/11/19 at 15:30 Clopidogrel Bisulfate (plaVIX) 75 mg DAILY PO Last administered on 01/12/19 09:30; Admin Dose 75 MG; Start 01/12/19 at 09:00 Diphenhydramine HCl (Benadryl) 50 mg Q8 PRN PO PRURITUS; Start 01/11/19 at 15:30 Docusate Sodium (Colace) 100 mg DAILY PO Last administered on 01/12/19 09:29; Admin Dose 100 MG; Start 01/12/19 at 09:00 Gabapentin (Neurontin) 300 mg TID PO Last administered on 01/12/19 20:10; Admin Dose 300 MG; Start 01/11/19 at 21:00 Isosorbide Mononitrate (Imdur) 30 mg DAILY PO Last administered on 01/12/19 09:29; Admin Dose 30 MG; Start 01/12/19 at 09:00 Loratadine (Claritin) 10 mg DAILY PO Last administered on 01/12/19 09:30; Admin Dose 10 MG; Start 01/12/19 at 09:00 Losartan Potassium (Cozaar) 50 mg DAILY PO Last administered on 01/12/19 09:29; Admin Dose 50 MG; Start 01/12/19 at 09:00 Metoprolol Succinate (Toprol Xl) 25 mg DAILY PO Last administered on 01/12/19 09:29; Admin Dose 25 MG; Start 01/12/19 at 09:00 Nitroglycerin (Nitroglycerin (Sl Tab) 0.4 Mg) 1 tab [id number] PRN SL CHEST PAIN; Start 01/11/19 at 15:30 Paroxetine HCl (Paxil) 30 mg HS PO Last administered on 01/12/19 20:10; Admin Dose 30 MG; Start 01/11/19 at 21:00 Insulin Aspart (Novolog Insulin Pen) 25 unit TID SC Last administered on 01/12/19at 12:50; Admin Dose 25 UNIT; Start 01/11/19 at 21:00 Fluticasone/ Vilanterol (Breo Ellipta 100-25 Mcg Inh) 1 inh DAILY@0900 INH ; Start 01/12/19 at 09:00 Diphenhydramine HCl (Benadryl) 50 mg Q8H PRN IV itchy Last administered on 01/13/19at 07:19; Admin Dose 50 MG; Start 01/12/19 at 15:30 Insulin Glargine (Lantus) 40 units QHS SC Last administered on 01/12/19at 21:51; Admin Dose 40 UNITS; Start 01/12/19 at 21:00 ANU MONZON Jan 13, 2019 07:57
[2019-01-13] MEDS: INSULIN ASPART [NOVOLOG] 3 ML PEN SC SCH ×4 (08:05→12:08)
[2019-01-13] MEDS: FLUTICASONE/VILANTEROL 100-25 INH SCH (09:00)
--- NOTE | 2019-01-13 09:06 | PDOCDIS ---
Discharge Instructions CONDITION [id number] Patient Condition: [id number] Good HOME CARE INSTRUCTIONS: [id number] Special Diet: [id number] DIABETIC ACTIVITY: [id number] Activity Restrictions: [id number] No Restrictions FOLLOW UP/APPOINTMENTS Follow-up Plan FOLLOW UP WITH YOUR PCP AND ANCILLARY SPECIALIST IN 1-2 WEEKS DELORES KIRKLAND Jan 13, 2019 09:06
[2019-01-13] MEDS: ISOSORBIDE MONONITRATE(SR)30 MG TAB PO SCH (09:22)
[2019-01-13] MEDS: METOPROLOL (XL) 25 MG TAB PO SCH (09:23)
[2019-01-13] MEDS: CLOPIDOGREL 75 MG TAB PO SCH (09:23)
[2019-01-13] MEDS: GABAPENTIN 300 MG CAP PO SCH ×2 (09:23→12:42)
[2019-01-13] MEDS: LOSARTAN 50 MG TAB PO SCH (09:24)
[2019-01-13] MEDS: ASPIRIN (EC) 81 MG TAB PO SCH (09:24)
[2019-01-13] MEDS: AMLODIPINE 10 MG TAB PO SCH (09:24)
[2019-01-13] MEDS: LORATADINE 10 MG TAB PO SCH (09:24)
[2019-01-13] MEDS: DOCUSATE SODIUM 100 MG CAP PO SCH (09:31)
[2019-01-13 11:01] VITALS: BP 116/65; PULSE 77; RESP 20
--- NOTE | 2019-01-13 13:34 | DS ---
Date/Time of Note Date/Time of Note DATE: 01/13/19 TIME: 13:28 Discharge Summary Admission/Discharge Info Admit Date/Time Jan 11, 2019 at 13:11 Discharge Date/Time January 13, 2019 Discharge Diagnosis 1. Left-sided weakness and paresthesias likely secondary to hyperglycemia Patient reports having chronic left lower extremity neuropathy but states that the anesthesia is in her left arm and face are new, patient also reported left facial droop which has resolved CT brain with no acute findings MRI brain with no significant acute findings Neurology consultation appreciated PT/OT Cocaine cessation advised 2. Diabetes-out of control Sugars are now stable Patient does report compliance with her diabetic regimen but sugars out of control and return to normal within 1 day of receiving insulin in the hospital Location of insulin administration may be preventing appropriate diffusion due to scar tissue, patient now receiving insulin in her arm Patient reports compliance with diabetic regimen Patient does follow-up with hand tacker as an outpatient A1c at this time is 12, was beyond detection during last hospitalization 3. Hypertension Resume home meds 4. Mood disorder Continue home SSRI 5. History of coronary disease Continue home meds 6. Cocaine abuse Cessation advised Patient Condition: Good Hospital Course Patient is a 53-year-old female with a history of diabetes, hypertension, history of [place] and mood disorder. Patient was hospitalized 2 months ago for hyperglycemia, patient does report compliance with her diabetic regimen and does have an hand tacker but at that time her sugars were out of control and A1c was undetectable. Patient was seen by head of quality and was to follow-up with her hand tacker. Patient presents this hospitalization with 3 days of worsening neuropathic symptoms with numbness and tingling in the left arm and face as well as left lower extremity. Patient was told by her daughter that her left face was drooping but that has since resolved. Patient also reported difficulty with ambulation with deviation towards her left side as she ambulated. Patient states that she checked her sugars at home and they were out of control, patient gave herself more insulin and even fasted with no improvement in her blood sugar. In the ER blood sugar was elevated at 480 on arrival and was given insulin. CT head MRI brain were negative, patient was seen by neurology and no acute findings were noted. Patient did have U tox was positive for cocaine, patient symptoms are likely result of hyperglycemia and substance abuse. Patient sugars once again normalized within the first day of hospitalization, patient was merely continued on her home regimen. Patient reports compliance with her regimen, patient administers insulin normally into her abdomen, patient may have scar tissue which prevents proper diffusion of insulin into her bloodstream. Patient received insulin in her arm and was told to continue administering insulin at that site. Cessation of substance abuse and compliance was strongly advised, on the day of discharge patient had no significant complaints, labs and vitals were stable as was physical exam. Patient was clear for DC per neurology. Home Meds Active Scripts Mupirocin* (Bactroban*) 2% -22 Gram Oint...g., 1 APPLIC TOP DAILY, #1 TUB Prov:DELORES KIRKLAND 11/29/18 Reported Medications Salmeterol Xinaf-Fluticasone* (Advair*) 100/50 Diskus Inhaler, 1 INH INHALATION BID, #1 INHALER 11/27/18 Atorvastatin* (Atorvastatin*) 80 Mg Tablet, 80 MG PO QHS, #30 TAB 11/27/18 Losartan Potassium* (Losartan Potassium*) 50 Mg Tablet, 50 MG PO DAILY, TAB 11/27/18 Docusate Sodium* (Colace*) 100 Mg Capsule, 100 MG PO DAILY, #30 CAP 11/27/18 Gabapentin* (Gabapentin*) 300 Mg Capsule, 300 MG PO TID, #90 CAP 11/27/18 Metoprolol Succinate* (Toprol XL*) 25 Mg Tab.sr.24h, 25 MG PO DAILY, #30 TAB 11/27/18 Insulin Regular, Human (Humulin R U-500 Kwikpen) 500 Unit/1 Ml Insuln.pen, 25 UNIT SQ TID 11/27/18 Insulin Glargine* (Lantus*) 100 Unit/Ml Soln, 80 UNIT SC BID, #1 VIAL 11/27/18 Paroxetine Hcl* (Paroxetine*) 30 Mg Tablet, 30 MG PO HS, TAB 11/27/18 Clopidogrel Bisulfate* (Clopidogrel Bisulfate*) 75 Mg Tablet, 75 MG PO DAILY, #30 TAB 11/27/18 Isosorbide Mononitrate* (Isosorbide Mononitrate*) 30 Mg Tab.er.24h, 30 MG PO DAILY, TAB 11/27/18 Loratadine* (Loratadine*) 10 Mg Tablet, 10 MG PO DAILY, #30 TAB 11/27/18 Amlodipine Besylate* (Amlodipine Besylate*) 10 Mg Tablet, 10 MG PO DAILY, #30 TAB 11/27/18 Aspirin* (Aspirin* EC) 81 Mg Tablet.dr, 81 MG PO DAILY, TAB 11/27/18 Temazepam* (Temazepam*) 30 Mg Capsule, 30 MG PO HS PRN for INSOMNIA, CAP 11/27/18 Nitroglycerin* (Nitroglycerin* SL) 0.4 Mg Tab.subl, 0.4 MG SL Q5MIN PRN for CHEST PAIN, BOTTLE 11/27/18 Diphenhydramine Hcl (BANOPHEN) 50 Mg Capsule, 50 MG PO NEEDED, CAP 11/27/18 Hydrocodone/Acetaminophen ([place] 10-325 Tablet) 1 Each Tablet, 1 EACH PO Q6H, TAB 11/27/18 Carisoprodol* (Carisoprodol*) 350 Mg Tablet, 350 MG PO DAILY PRN for MUSCLE SPASMS, TAB 11/27/18 Follow-up Plan FOLLOW UP WITH YOUR PCP AND HEALTH CARE SANITARY TECHNICIAN IN 1-2 WEEKS Primary Care Provider Not On Staff Doctor Time spent on discharge: > 30 minutes DELORES KIRKLAND Jan 13, 2019 13:34
== END 2019-01-13 15:15 | disposition home or self-care (01) | DRG 639 ==
LOC: E/R 09:18 → TEL 13:11 → EDBEDREQ 17:49
PROVIDERS: ADMIT Internal Medicine; ATTEND Internal Medicine
DX: E11.65 Type 2 diabetes mellitus with hyperglycemia (principal); F39 Unspecified mood [affective] disorder; I25.10 Atherosclerotic heart disease of native coronary artery without angina pectoris; I10 Essential (primary) hypertension; I25.2 Old myocardial infarction; F14.10 Cocaine abuse, uncomplicated; E11.40 Type 2 diabetes mellitus with diabetic neuropathy, unspecified
CPT/HCPCS: 36415; 70450; 70552; 71045; 80048; 80061; 80307; 81001; 82803; 82962; 83036; 83735; 84100; 85025; 85651; 86592; 93880; 96360; 96361; 97161; J1200; J1815; J2270; J2405; J7030